=== PATIENT | female | born 1985 | race Caucasian/White ===

== ENCOUNTER 2023-03-02 11:10 | Outpatient (OUT) | payer OTHER, SELFPAY ==
[2023-03-02 11:54] LABS: Basophils Percent Auto 0.5 % (0.2-2.0); Eosinophils Absolute Auto 0.1 10^3/uL (0.0-0.7); Eosinophils Percent Auto 0.6 % (0.9-7.0); Hematocrit 33.9 % (36.0-48.0); Hemoglobin 10.8 g/dL (12.0-16.0); Immature Granulocytes Abs Auto 0.02 10^3/uL (0.00-0.03); Immature Granulocytes Pct Auto 0.3 % (0.0-0.5); Lymphocytes Absolute Auto 1.2 10^3/uL (1.2-3.8); Lymphocytes Percent Auto 15.4 % (20.5-60.0); Mean Corpuscular HGB Conc 31.9 g/dL (29.9-35.2); Mean Corpuscular Hemoglobin 27.8 pg (26.7-34.0); Mean Corpuscular Volume 87.1 fL (81.0-99.0); Mean Platelet Volume 9.8 fL (9.5-13.5); Monocytes Absolute Auto 0.5 10^3/uL (0.3-0.8); Neutrophils Percent Auto 77.2 % (43.0-75.0); Platelet Count 236 10^3/uL (150-450); Red Blood Count 3.89 10^6/uL (4.20-5.40); Red Cell Distribution Width 13.6 % (11.0-15.0); White Blood Count 7.7 10^3/uL (4.0-11.0)
[2023-03-02 12:17] LABS: Alanine Aminotransferase 36 U/L (14-59); Albumin Globulin Ratio 1.1; Albumin Level 4.1 g/dL (3.4-5.0); Alkaline Phosphatase 53 U/L (46-116); Anion Gap 13.6; Aspartate Amino Transferase 33 U/L (15-37); BUN Creatinine Ratio 18.3; Bilirubin Total 0.4 mg/dL (0.2-1.0); Calcium 9.2 mg/dL (8.5-10.1); Carbon Dioxide 26.6 mmol/L (21.0-32.0); Chloride 104 mmol/L (98-107); Chol HDL Ratio 2.6; Cholesterol 170 mg/dL (<=200); Estimated GFR (African America >60 (>=60); Estimated GFR (Non-African Ame >60 (>=60); Globulin 3.8 g/dL; Glucose 102 mg/dL (74-106); HDL Cholesterol 65 mg/dL (40-60); Potassium 4.2 mmol/L (3.5-5.1); Sodium 140 mmol/L (136-145); Total Protein 7.9 g/dL (6.4-8.2); Triglycerides 64 mg/dL (<=150); VLDL CHOLESTEROL 12.8 mg/dL
[2023-03-03 06:08] LABS: HCV Ab Non Reactive (Non Reactive); HIV Ab/p24 Ag Screen Non Reactive (Non Reactive)
== END 2023-03-02 11:11 | disposition home or self-care (01) ==
LOC: LAB 11:10
PROVIDERS: PCP Nurse Practitioner Primary Care; Visit Provider Nurse Practitioner Primary Care
DX: Z00.00 Encounter for general adult medical examination without abnormal findings (principal); Z11.59 Encounter for screening for other viral diseases; Z13.6 Encounter for screening for cardiovascular disorders; Z11.4 Encounter for screening for human immunodeficiency virus [HIV]; Z13.29 Encounter for screening for other suspected endocrine disorder
CPT/HCPCS: 36415; 80053; 80061; 84443; 85025; 86803; 87389

== ENCOUNTER 2023-03-03 07:25 | Outpatient (OUT) | payer OTHER, SELFPAY ==
--- NOTE | 2023-03-03 07:29 | MR_ITS ---
[address] [address] Patient Name: VERA PLEITEZ MRN: [id number] date: 1985 Sex: F Assigned Patient Location: MRI Current Patient Location: MRI Accession/Order Number: [id number] Exam Date: 03/03/2023 07:40 Report Date: 03/03/2023 08:44 At the request of: ROME COOPER Procedure: MR shoulder LT wo con EXAMINATION: MR shoulder LT wo con HISTORY: Left Shoulder Tendinitis M77.8 COMPARISON: No relevant comparison available. TECHNIQUE: A variety of imaging planes and parameters were utilized for visualization of suspected pathology. Imaging was performed without or with contrast as indicated by examination type. FINDINGS: ROTATOR CUFF REGION CUFF TENDONS: Slightly increased signal intensity in the supraspinatus tendon indicates tendon degeneration and/or tendinitis. No bethel tear is seen. CUFF MUSCLES: Normal appearing muscles. DELTOID: Normal. No significant atrophy or tear. LONG BICEPS TENDON: Normal. No abnormal signal, attrition, or tear. LABRUM/BICEPS ANCHOR SUPERIOR: Normal. No visible labral tear or biceps anchor pathology. ANTERIOR/INFERIOR: Normal. No visible tear or attrition. POSTERIOR: Normal. No posterior labrum abnormality. CAPSULE Normal. No visible capsular laxity or thickening. AC JOINT REGION AC JOINT: Normal acromioclavicular joint. AC LIGAMENTS: Normal acromioclavicular ligament. CC LIGAMENTS: Normal coracoclavicular ligaments. ACROMION: Lateral downsloping contacting the supraspinatus tendon. SUBACROMIAL BURSA: Normal. No significant effusion. HYALINE CARTILAGE: Normal. No visible cartilage narrowing or focal defect. OTHER BONES: Normal proximal humerus, glenoid, and coracoid. OTHER OBSERVATIONS: Negative. No other significant findings or glenohumeral effusion. MR/MR shoulder LT wo con IMPRESSION: 1. Mild strain/tendinopathy of the supraspinatus tendon. 2. Lateral downsloping acromion process with lateral margin small undersurface osteophyte contacting the supraspinatus tendon. Electronically authenticated by: JENNIFER BUSH Date: 03/03/2023 08:44
--- NOTE | 2023-03-03 07:29 | XR_ITS ---
The [address] [address] Patient Name: VERA PLEITEZ MRN: [id number] date: 1985 Sex: F Assigned Patient Location: MRI Current Patient Location: MRI Accession/Order Number: [id number] Exam Date: 03/03/2023 07:30 Report Date: 03/03/2023 07:50 At the request of: ROME COOPER Procedure: XR shoulder LT min 2V PROCEDURE: XR shoulder LT min 2V HISTORY: Left Shoulder Tendinitis M77.8 ; left posterior shoulder pain for 2 months, limited range of motion COMPARISON: None. FINDINGS: BONES:No fracture, acute abnormality, or significant arthropathy. SOFT TISSUES:No visible soft tissue swelling. EFFUSION:None visible. OTHER: Negative. XR/XR shoulder LT min 2V IMPRESSION: 1. No abnormal or suspicious findings. Electronically authenticated by: JENNIFER BSUH Date: 03/03/2023 07:50
== END 2023-03-03 07:26 | disposition home or self-care (01) ==
LOC: MRI 07:25
PROVIDERS: PCP Nurse Practitioner Primary Care; Visit Provider Nurse Practitioner Primary Care
DX: M77.8 Other enthesopathies, not elsewhere classified (principal)
CPT/HCPCS: 73030; 73221

== ENCOUNTER 2023-03-05 07:52 | Outpatient (RCR) | payer OTHER, SELFPAY | END 2023-05-30 15:51 | disposition home or self-care (01) | LOC: PT 07:52 | PROVIDERS: PCP Nurse Practitioner Primary Care; Visit Provider Nurse Practitioner Primary Care | DX: M77.8 Other enthesopathies, not elsewhere classified (principal); M25.512 Pain in left shoulder | CPT/HCPCS: 97110; 97112; 97161 ==

== ENCOUNTER 2024-01-07 20:07 | Outpatient (REF) | payer OTHER, SELFPAY ==
[2024-01-13 08:13] LABS: Age Gdln ACOG Testing Note (.); HPV Aptima Negative (Negative); IGP, Aptima HPV, rfx 16/18,45 Note (.)
== END 2024-01-07 20:08 | disposition home or self-care (01) ==
LOC: LAB 20:07
PROVIDERS: PCP Nurse Practitioner Primary Care; Visit Provider Physician Assistant
DX: Z01.419 Encounter for gynecological examination (general) (routine) without abnormal findings (principal)
CPT/HCPCS: 87624; G0145

== ENCOUNTER 2024-03-12 20:03 | Emergency (ER) | payer OTHER, SELFPAY ==
--- OUTSIDE RECORDS SUMMARY | 2024-03-12 20:20 | XMS_ITS | CCD ---
Author Organization [facility]iniSy[facility] Care Team Providers Care Waste Elimination Name Role Phone AKKIO POP Unavailable Unavailable MOOSA, THERESE F Unavailable Unavailable NISHI GUERRERO Unavailable Unavailable MOOSA, THERESE F Unavailable Unavailable AKIKO POP Unavailable Unavailable MOOSA, THERESE F Unavailable Unavailable NO FAMILY, PHYSICIAN Primary Care Provider Unava VANCE [place] Emergency Provider MISC, DR GILMORE Consulting Unavailable MISC, DR GILMORE Attending Unavailable MISC, DR GILMORE Admitting Unavailable MISC, DR GILMORE Consulting Unavailable MISC, DR GILMORE Attending Unavailable MISC, DR GILMORE Admitting Unavailable OLEXA, BRIDGER Admitting Unavailable OLEXA, BRIDGER Attending Unavailable ZIEBER, DR JENNIFER Gimenez Consulting Unavailable OLEXA, BRIDGER Consulting Unavailable MISC, DR GILMORE Primary Care Unavailable DES ARC, DR EARNESTINE Johnson Consulting Unavailable DACIA, DR KILLIAN Admitting Unavailable DACIA, DR KILLIAN Attending Unavailable DACIA, DR KILLIAN Consulting Unavailable DACIA, DR KILLIAN Admitting Unavailable DACIA, DR KILILAN Consulting Unavailable DACIA, DR KILLIAN Attending Unavailable Olexa, Bridger Unavailable Shannan Kee Unavailable David WALKER Attending Unavailable GRISELDA MARTEL Attending Unavailable Medications Current Medications Medication Drug Class(es) Dates Sig (Normalized) Sig (Original) etonogestrel 68 mg drug implant (1 source) Progestin Nexplanon 68 MG as directed Subcutaneous Active ondansetron 4 mg oral tablet (1 source) Serotonin-3 Receptor Antagonist Start: 08-05-2021 take 1 tablet by mouth every eight hours as needed Zofran ODT 4 MG 1 tablet on the tongue and allow to dissolve Orally every 8 hrs as needed for 4 days Jul, Active Problems Active Problems Problem Classification Problem Date Documented Da te Episodic/Chronic Administrative/social admission (4 sources) Encounter for examination for recruitment to armed [employer]; Translations: [ENC EXAM RECRUITMENT [employer]] Onset: 10-05-2021 Episodic Open wounds of head; neck; and trunk (1 source) Laceration - injury; Translations: [Laceration] Episodic Other female genital disorders (2 sources) Abnormal uterine and vaginal bleeding, unspecified; Translations: [Abnormal uterine and vaginal bleeding, unspecified] Onset: 06-03-2017 Chronic Urinary tract infections (4 sources) Urinary tract infection, site not specified; Translations: [UTI SITE NOT SPECIFIED] Onset: 10-17-2021 Episodic Past or Other Problems Problem Classification Problem Date Documented Da te Episodic/Chronic Immunizations and screening for infectious disease (2 sources) Encounter for screening for human papillomavirus (HPV); Translations: [Contact with and (suspected) exposure to other viral communicable diseases] Onset: 11-20-2020 Resolved: 08-05-2021 Episodic Intestinal infection (1 source) Viral intestinal infection, unspecified Onset: 08-05-2021 Resolved: 08-05-2021 Episodic Nausea and vomiting (1 source) Nausea with vomiting, unspecified Onset: 08-05-2021 Resolved: 08-05-2021 Episodic Nonmalignant breast conditions (4 sources) Unspecified lump in the left breast, lower outer quadrant; Translations: [UNS LUMP IN LT BREAST LW OUTR QUAD] Onset: 05-14-2021 Episodic Normal and/or delivery (2 sources) Encounter for test, result positive; Translations: [Encounter for test, result positive] Onset: 06-04-2017 Episodic Other bone disease and musculoskeletal deformities (1 source) Chondromalacia, right knee; Translations: [Chondromalacia, right knee M94.261] Onset: 06-20-2021 Resolved: 06-20-2021 Episodic Other non-traumatic joint disorders (5 sources) Pain in right knee; Translations: [PAIN IN RIGHT KNEE] Onset: 06-20-2021 Resolved: 06-20-2021 Episodic Other screening for suspected conditions (not mental disorders or infectious disease) (4 sources) Encounter for screening for malignant neoplasm of cervix; Translations: [ENC SCREENING MALIG NEOPLASM CERV] Onset: 11-13-2020 Episodic Results Test Name Value Interpretation Reference Range Facility [facility] 08-04-2022 Consent [id number]# 1.00CD:127 Normal [facility] Registrationon 08-04-2022 Registration [id number]# 1.00CD:127 Normal [facility] UA RANDOMon 10-17-2021 Bilirubin Ql (U) Negative Normal NEGATIVE [facility] Comment on above: Performed By: #### U A #### [facility] [address] [place] [address] Dr. Luis Enrique Espino Clarity (U) CLEAR Normal CLEAR [facility] Comment on above: Performed By: #### U A #### [facility] [address] [place] [address] Dr. Luis Enrique Espino Color (U) YELLOW Normal YELLOW [facility] Comment on above: Performed By: #### U A #### [facility] [address] [place] [address] Dr. Luis Enrique Espino Glucose Ql (U) Negative Normal NEGATIVE [facility] Comment on above: Performed By: #### U A #### [facility] [address] [place] [address] Dr. Luis Enrique Espino Hemoglobin Ql (U) Negative Normal NEGATIVE [facility] Comment on above: Performed By: #### U A #### [facility] [address] [place] [address] Dr. Luis Enrique Espino Ketones Ql (U) Negative Normal NEGATIVE [facility] Comment on above: Performed By: #### U A #### [facility] [address] [place] [address] Dr. Luis Enrique Espino LEUKOCYTES Negative Normal NEGATIVE [facility] Comment on above: Performed By: #### U A #### [facility] [address] [place] [address] Dr. Luis Enrique Espino Nitrite Ql (U) Negative Normal NEGATIVE [facility] Comment on above: Performed By: #### U A #### [facility] [address] [place] [address] Dr. Luis Enrique Espino pH (U) 7.5 [pH] Normal 5-9 [facility] Comment on above: Performed By: #### U A #### [facility] [address] [place] [address] Dr. Luis Enrique Espino SPEC GRAVITY 1.020 Normal 1.005-<=1.025 [facility] Comment on above: Performed By: #### U A #### [facility] [address] [place] [address] Dr. Luis Enrique Espino UA PROTEIN Negative Normal NEGATIVE/ TRACE [facility] Comment on above: Performed By: #### U A #### [facility] [address] [place] [address] Dr. Luis Enrique Espino Urobilinogen Qn (U) 1.0 {Aura'U}/dL Normal 0.2 - 1. 0 [facility] Comment on above: Performed By: #### U A #### [facility] [address] [place] [address] Dr. Luis Enrique Espino DRUG SCREEN RAPID (URINE)on 10-05-2021 AMP Negative Normal NEGATIVE [facility] Comment on above: Performed By: #### D RUGRPD #### [facility] [address] [place] [address] Dr. Luis Enrique Espino BAR Negative Normal NEGATIVE [facility] Comment on above: Performed By: #### D RUGRPD #### [facility] [address] [place] [address] Dr. Luis Enrique Espino BUP Negative Normal NEGATIVE [facility] Comment on above: Performed By: #### D RUGRPD #### [facility] [address] [place] [address] Dr. Luis Enrique Espino BZO Positive Abnormal NEGATIVE [facility] Comment on above: Performed By: #### D RUGRPD #### [facility] [address] [place] [address] Dr. Luis Enrique Espino MADONNA Negative Normal NEGATIVE [facility] Comment on above: Performed By: #### D RUGRPD #### [facility] [address] [place] [address] Dr. Luis Enrique Espino CUT-OFFS SEE BELOW Normal [facility] Comment on above: Result Comment: AMP (Amphetamine): 500ng/mL, BAR (Barbituates): 200 ng/mL, BZO (Benzodiazepines): 150 ng/mL, BUP (Buprenorphine): 10 ng/mL, MADONNA (Cocaine): 150 ng/mL, mAMP (Methamphetamine): 500 ng/mL, MTD (Methadone): 200 ng/mL, OPI (Opiates): 100 ng/mL, OXY (Oxycodone): 100 ng/mL, PCP (Phencyclidine): 25 ng/mL, PPX (Propoxyphene): 300 ng/mL, THC (Cannabinoids): 50 ng/mL, TCA (Trycyclic Antidepressants): 300 ng/mL Performed By: #### D RUGRPD #### [facility] [address] [place] [address] Dr. Luis Enrique Espino DRUG CUT HEADER DRUG CLASS TEST SYSTEM CUT-OFF CONCENTRATIONS ARE FOLLOWS: Normal [facility] Comment on above: Performed By: #### D RUGRPD #### [facility] [address] [place] [address] Dr. Luis Enrique Espino mAMP Negative Normal NEGATIVE [facility] Comment on above: Performed By: #### D RUGRPD #### [facility] [address] [place] [address] Dr. Luis Enrique Espino MTD Negative Normal NEGATIVE [facility] Comment on above: Performed By: #### D RUGRPD #### [facility] [address] [place] [address] Dr. Luis Enrique Espino OPI Negative Normal NEGATIVE [facility] Comment on above: Performed By: #### D RUGRPD #### [facility] [address] [place] [address] Dr. Luis Enrique Espino OXY Negative Normal NEGATIVE [facility] Comment on above: Performed By: #### D RUGRPD #### [facility] [address] [place] [address] Dr. Luis Enrique Espino PCP Negative Normal NEGATIVE [facility] Comment on above: Performed By: #### D RUGRPD #### [facility] [address] [place] [address] Dr. Luis Enrique Espino PPX Negative Normal NEGATIVE [facility] Comment on above: Performed By: #### D RUGRPD #### [facility] [address] [address] [address] Luis Enrique Espino TCA Negative Normal NEGATIVE [facility] Comment on above: Performed By: #### D RUGRPD #### [facility] [address] [place], [place] [address] Dr. Luis Enrique Espino THC Negative Normal NEGATIVE [facility] Comment on above: Performed By: #### D RUGRPD #### [facility] [address] [place], [place] [address] Dr. Luis Enrique Espino COVID Quick Testingon 2020 Result Negative L-3 [facility] Other Quick Fluon 08-05-2021 FLUAV Ab CF (S) [Titer] Negative L-3 [facility] Other FLUBV Ab CF (S) [Titer] Negative L-3 [facility] Other MG MAMM DIAGNOSTIC 3D DIPTI CA Don 05-14-2021 MG MAMM DIAGNOSTIC 3D DIPTI CAD Patient: VERA PLEITEZ Exam Date: 05/14/2021 : 1985 Gender:F Ordering : DR MARIA D PEDERSON . Admission #: [id number] Family : Order #: [id number] CLICK HERE TO VIEW EXAM RADIOLOGY REPORT PROCEDURE: MAMMOGRAM DIAGNOSTIC 3D BILATERAL CAD, 05/14/2021, 08:51 ULTRASOUND BREAST LEFT LIMITED, 05/14/2021, 09:16 COMPARISON: None. INDICATIONS: Lump in lower outer quadrant of left breast Calculator Name NCI Breast Cancer Risk Assessment Tool 5 Year Breast Cancer Risk 0.30% Lifetime Breast Cancer Risk 8.40% Personal Breast Cancer No Personal Ovarian Cancer No Treatments None Family Cancers Brother with lymphoma cancer at age 19. LOCATION: [facility] BREAST COMPOSITION: Heterogeneously dense,which may obscure small masses. FINDINGS: DIAGNOSTIC CATEGORY 2--BENIGN FINDING: The breasts are medium in size with dense fibroglandular tissue limiting diagnostic sensitivity. RIGHT BREAST: No significant suspicious finding. Benign calcification upper outer quadrant LEFT BREAST: No significant suspicious finding. [place] marker indicates a palpable mass lower outer quadrant. No mammographic abnormality on standard or spot images. No corresponding ultrasound abnormality. Further evaluation should be based on clinical exam. RECOMMENDATIONS: CLINICAL EVALUATION. PLEASE NOTE: A NORMAL MAMMOGRAM DOES NOT EXCLUDE THE POSSIBILITY OF BREAST CANCER. A CLINICALLY SUSPICIOUS PALPABLE LUMP SHOULD BE BIOPSIED. Dictated by: Earnestine Blanton MD on 05/14/2021 at 09:31 Approved by: Earnestine Blanton MD on 05/14/2021 at 09:33 Normal [facility] US BREAST LEFT LIMITEDon US BREAST LEFT LIMITED Patient: VERA PLEITEZ Exam Date: 05/14/2021 : 1985 Gender:F Ordering : DR MARIA D PEDERSON . Admission #: [id number] Family : Order #: [id number] CLICK HERE TO VIEW EXAM RADIOLOGY REPORT PROCEDURE: MAMMOGRAM DIAGNOSTIC 3D BILATERAL CAD, 05/14/2021, 08:51 ULTRASOUND BREAST LEFT LIMITED, 05/14/2021, 09:16 COMPARISON: None. INDICATIONS: Lump in lower outer quadrant of left breast Calculator Name NCI Breast Cancer Risk Assessment Tool 5 Year Breast Cancer Risk 0.30% Lifetime Breast Cancer Risk 8.40% Personal Breast Cancer No Personal Ovarian Cancer No Treatments None Family Cancers Brother with lymphoma cancer at age 19. LOCATION: [facility] BREAST COMPOSITION: Heterogeneously dense,which may obscure small masses. FINDINGS: DIAGNOSTIC CATEGORY 2--BENIGN FINDING: The breasts are medium in size with dense fibroglandular tissue limiting diagnostic sensitivity. RIGHT BREAST: No significant suspicious finding. Benign calcification upper outer quadrant LEFT BREAST: No significant suspicious finding. [place] marker indicates a palpable mass lower outer quadrant. No mammographic abnormality on standard or spot images. No corresponding ultrasound abnormality. Further evaluation should be based on clinical exam. RECOMMENDATIONS: CLINICAL EVALUATION. PLEASE NOTE: A NORMAL MAMMOGRAM DOES NOT EXCLUDE THE POSSIBILITY OF BREAST CANCER. A CLINICALLY SUSPICIOUS PALPABLE LUMP SHOULD BE BIOPSIED. Dictated by: Earnestine Blanton MD on 05/14/2021 at 09:31 Approved by: Earnestine Blanton MD on 05/14/2021 at 09:33 Normal [facility] PAP ACOG PANEL 2: 30 to 65on 2020 . . Normal [facility] Comment on above: Result Comment: Perf ormed at: WB Performed By: #### [id number] #### [facility] [address] [place] [address] Dolores Clarke Age Gdln ACOG Testing 30-65 Normal [facility] Comment on above: Performed By: #### [id number] #### [facility] [address] [place] [address] Dolores Clarke DIAGNOSIS: Comment Normal [facility] Comment on above: Result Comment: NEGA TIVE FOR INTRAEPITHELIAL LESION OR MALIGNANCY. Performed at: WB Performed By: #### [id number] #### [facility] [address] [place] [address] Dolores Clarke HPV Aptima Negative Normal Negative [facility] Comment on above: Result Comment: This nucleic acid amplification test detects fourteen high-risk HPV types (16,18,31,33,35,39,45,51,52,56,58,59,66,68) without differentiation. Performed at: =G Performed By: #### [id number] #### [facility] [address] [place] [address] Doloresdarryl Clarke Methodology: Comment Normal [facility] Comment on above: Result Comment: This liquid based ThinPrep(R) pap test was screened with the use of an image guided system. Performed at: WB Performed By: #### [id number] #### [facility] [address] [place] [address] Dolores Breweren Note: Comment Normal [facility] Comment on above: Result Comment: The Pap smear is a screening test designed to aid in the detection of premalignant and malignant conditions of the uterine cervix. It is not a diagnostic procedure and should not be used as the sole means of detecting cervical cancer. Both false-positive and false-negative reports do occur. . Performed at: WB Performed By: #### [id number] #### [facility] [address] [place] [address] Dolores Clarke Performed by: Comment Normal [facility] Comment on above: Result Comment: Renzo Gann, Analysis Analyst (ASCP) Performed at: WB Performed By: #### [id number] #### [facility] [address] [place] [address] Dolores Clarke Specimen adequacy: Comment Normal [facility] Comment on above: Result Comment: Sati sfactory for evaluation. Endocervical and/or squamous metaplastic cells (endocervical component) are present. Performed at: WB Performed By: #### [id number] #### [facility] [address] [place], [place] [address] Dolores Clarke HCG, Quanton 06-15-2017 HCG, Quant 9820 IU/L High <5 [facility] Comment on above: Result Comment: Non- preg premeno <=5Postmeno <=8Male <=3If HCG results do not concur with clinical observations, additional testing to confirm result is recommended. This test is not labeled for use as a tumor marker.[facility] [address] [place] [address] Performed By: #### B HCG ####[address] [place] [address] HCG, Quanton 06-04-2017 HCG, Quant 166 IU/L High <5 [facility] Comment on above: Result Comment: Non- preg premeno <=5Postmeno <=8Male <=3If HCG results do not concur with clinical observations, additional testing to confirm result is recommended. This test is not labeled for use as a tumor marker.Performed at [facility] [address] [place] [address] Performed By: #### B HCG ####[facility] [place] [address] CBC with Diffon 06-03-2017 Abs. Basophil 0.00 k/uL Normal 0.0-0.2 [facility] Comment on above: Performed By: #### C DP, PROL, BHCG, FT4, INSU, LH, PROG, TSH, GLU ####[address] [place] [address] Abs.Neutrophil (Seg) 3.40 k/uL Normal 1.8-7.7 [facility] Comment on above: Performed By: #### C DP, PROL, BHCG, FT4, INSU, LH, PROG, TSH, GLU ####[address] [address] Basophils/100 WBC Auto (Bld) 1 % Normal [facility] Comment on above: Performed By: #### C DP, PROL, BHCG, FT4, INSU, LH, PROG, TSH, GLU ####[place] [address] Eosinophils 0.10 10*3/uL Normal 0.0-0.4 [facility] Comment on above: Performed By: #### C DP, PROL, BHCG, FT4, INSU, LH, PROG, TSH, GLU ####[address] [address] Eosinophils/100 leukocytes 2 % Normal [facility] Comment on above: Performed By: #### C DP, PROL, BHCG, FT4, INSU, LH, PROG, TSH, GLU ####[place] [address] Erythrocyte distribution width Auto Ratio (RBC) 18.5 % High 12.5-15.4 [facility] Comment on above: Performed By: #### C DP, PROL, BHCG, FT4, INSU, LH, PROG, TSH, GLU ####[address] [address] Erythrocyte morphology ANISOCYTOSIS PRESENT Normal [facility] Comment on above: Result Comment: MICR OCYTOSIS PRESENT[address] [address] Performed By: #### C DP, PROL, BHCG, FT4, INSU, LH, PROG, TSH, GLU ####[address] [address] Erythrocytes (RBC) 4.05 10*6/uL Normal 4.0-5.2 [facility] Comment on above: Performed By: #### C DP, PROL, BHCG, FT4, INSU, LH, PROG, TSH, GLU ####[address] [address] Hematocrit (HCT) 29.6 % Low 36-46 [facility] Comment on above: Performed By: #### C DP, PROL, BHCG, FT4, INSU, LH, PROG, TSH, GLU ####[address] [address] Hemoglobin mass conc (Bld) 9.6 g/dL Low 12.0-16.0 [facility] Comment on above: Performed By: #### C DP, PROL, BHCG, FT4, INSU, LH, PROG, TSH, GLU ####[address] [address] Lymphocytes 1.40 10*3/uL Normal 1.0-4.8 [facility] Comment on above: Performed By: #### C DP, PROL, BHCG, FT4, INSU, LH, PROG, TSH, GLU ####[address] [address] Lymphocytes/100 leukocytes 27 % Normal [facility] Comment on above: Performed By: #### C DP, PROL, BHCG, FT4, INSU, LH, PROG, TSH, GLU ####[address] [address] MCH 23.7 pg Low 26-34 [facility] Comment on above: Performed By: #### C DP, PROL, BHCG, FT4, INSU, LH, PROG, TSH, GLU ####[address] [address] MCHC mass conc (RBC) 32.4 g/dL Normal 31-37 [facility] Comment on above: Performed By: #### C DP, PROL, BHCG, FT4, INSU, LH, PROG, TSH, GLU ####[place] [address] MCV 73.1 fL Low 80-100 [facility] Comment on above: Performed By: #### C DP, PROL, BHCG, FT4, INSU, LH, PROG, TSH, GLU ####[place] [address] Monocytes 0.30 10*3/uL Normal 0.1-1.2 [facility] Comment on above: Performed By: #### C DP, PROL, BHCG, FT4, INSU, LH, PROG, TSH, GLU ####[place] [address] Monocytes/100 leukocytes 6 % Normal [facility] Comment on above: Performed By: #### C DP, PROL, BHCG, FT4, INSU, LH, PROG, TSH, GLU ####[place] [address] Neutrophil (Seg) 64 % Normal [facility] Comment on above: Performed By: #### C DP, PROL, BHCG, FT4, INSU, LH, PROG, TSH, GLU ####[place] [address] Platelet mean volume (PMV) 7.8 fL Normal 6.0-12.0 [facility] Comment on above: Performed By: #### C DP, PROL, BHCG, FT4, INSU, LH, PROG, TSH, GLU ####[address] [address] Platelets 300 10*3/uL Normal 140-450 [facility] Comment on above: Performed By: #### C DP, PROL, BHCG, FT4, INSU, LH, PROG, TSH, GLU ####[address] [address] WBC (Leukocytes) 5.2 10*3/uL Normal 3.5-11.0 [facility] Comment on above: Performed By: #### C DP, PROL, BHCG, FT4, INSU, LH, PROG, TSH, GLU ####[address] [address] Auto Diff Performed NOT REPORTED Normal [facility] Comment on above: Performed By: #### C DP, PROL, BHCG, FT4, INSU, LH, PROG, TSH, GLU ####[address] [address] Platelets NOT REPORTED Normal [facility] Comment on above: Performed By: #### C DP, PROL, BHCG, FT4, INSU, LH, PROG, TSH, GLU ####[address] [address] WBC Morphology NOT REPORTED Normal [facility] Comment on above: Performed By: #### C DP, PROL, BHCG, FT4, INSU, LH, PROG, TSH, GLU ####[address] [address] Glucoseon 06-03-2017 Glucose mass conc 96 mg/dL Normal 70-99 [facility] Comment on above: Result Comment: [address] [address] Performed By: #### C DP, PROL, BHCG, FT4, INSU, LH, PROG, TSH, GLU ####[address] [address] HCG, Quanton 06-03-2017 HCG, Quant 65 IU/L High <5 [facility] Comment on above: Result Comment: Non- preg premeno <=5Postmeno <=8Male <=3If HCG results do not concur with clinical observations, additional testing to confirm result is recommended. This test is not labeled for use as a tumor marker.[address] [address] Performed By: #### C DP, PROL, BHCG, FT4, INSU, LH, PROG, TSH, GLU ####[address] [address] Insulinon 06-03-2017 Insulin 10.0 mU/L Normal [facility] Comment on above: Performed By: #### C DP, PROL, BHCG, FT4, INSU, LH, PROG, TSH, GLU ####[address] [address] Reference Range Normal [facility] Comment on above: Result Comment: Fast in.6-24.930 min: 20-78446 min: 29-8890 min: 26-88197 min: 22-[address] [address] Performed By: #### C DP, PROL, BHCG, FT4, INSU, LH, PROG, TSH, GLU ####[address] [address] Collection Info. FASTING Normal [facility] Comment on above: Performed By: #### C DP, PROL, BHCG, FT4, INSU, LH, PROG, TSH, GLU ####[address] [address] Luteinizing Hormoneon 2016 Luteinizing Hormone 0.6 U/L Low 1.0-95.6 [facility] Comment on above: Result Comment: Refe rence Range:Male: 1.7-8.6Ovulating Female: Follicular Phase 2.4-12.6 Ovulation Phase 14.0-95.6 Luteal Phase 1.0-11.4Postmenopausal Female: 7.7-58.[address] [address] Performed By: #### C DP, PROL, BHCG, FT4, INSU, LH, PROG, TSH, GLU ####[address] [address] Progesteroneon 06-03-2017 Progesterone 17.44 ng/mL Normal [facility] Comment on above: Result Comment: FEMA LE (healthy): Follicular phase 0.06-0.89 Ovulation phase 0.12-12.00 Luteal phase 1.83-23.90Postmenopausal <0.[address] [address] Performed By: #### C DP, PROL, BHCG, FT4, INSU, LH, PROG, TSH, GLU ####[address] [address] Prolactinon 06-03-2017 Prolactin 13.77 ug/L Normal 4.79-23.30 [facility] Comment on above: Result Comment: The presence of macroprolactin may cause interference in female patients with various endocrinological diseases or during .[address] [address] Performed By: #### C DP, PROL, BHCG, FT4, INSU, LH, PROG, TSH, GLU ####[address] [address] Thyroid Stim. Horm.on 2016 Thyroid stimulating hormone (TSH) 1.67 m[IU]/L Normal 0.30-5.00 [facility] Comment on above: Result Comment: [address] [address] Performed By: #### C DP, PROL, BHCG, FT4, INSU, LH, PROG, TSH, GLU ####[address] [id number] Thyroxine, Freeon 06-03-2017 Thyroxine, Free 1.21 ng/dL Normal 0.93-1.70 [facility] Comment on above: Result Comment: [address] [id number] [phone] Performed By: #### C DP, PROL, BHCG, FT4, INSU, LH, PROG, TSH, GLU ####[address] [id number] Vital Signs Date Time Vital Sign Value Performing Clinician Facility 08-05-2021 10:00-0500 Body height 167.64 cm Shannan Kee [facility] Other 08-05-2021 10:00-0500 Body temperature 96 [degF] Shannan Kee [facility] Other 08-05-2021 10:00-0500 Respiratory rate 18 /min Shannan Kee [facility] Other 08-05-2021 10:00-0500 SaO2% (BldA) [Mass fraction] 99 % Shannan Kee [facility] Other 07-20-2021 21:28-0500 Body height 167.64 cm PHYSICIAN NO [facility] 07-20-2021 21:28-0500 Body mass index (BMI) [Ratio] 23.3 kg/m2 PHYSICIAN NO [facility] 07-20-2021 21:28-0500 Body temperature 98.1 [degF] PHYSICIAN NO [facility] 07-20-2021 21:28-0500 Body weight 65.77 kg PHYSICIAN NO [facility] 07-20-2021 21:28-0500 Diastolic blood pressure 65 mm[Hg] PHYSICIAN NO [facility] 07-20-2021 21:28-0500 Heart rate 84 /min PHYSICIAN NO [facility] 07-20-2021 21:28-0500 Respiratory rate 18 /min PHYSICIAN NO [facility] 07-20-2021 21:28-0500 SaO2% (BldA) [Mass fraction] 100 % PHYSICIAN NO [facility] 07-20-2021 21:28-0500 Systolic blood pressure 145 mm[Hg] PHYSICIAN NO [facility] 06-20-2021 15:00-0400 Body height 167.64 cm Bridger Stephens Other [facility] Other 06-20-2021 15:00-0400 Body mass index (BMI) [Ratio] 23.08 kg/m2 Bridger Stephens Other [facility] Other 06-20-2021 15:00-0400 Body weight 64.86 kg Bridger Stephens Other [facility] Other Encounters Encounter Date Encounter Type Care Provider Facility Start: 01-07-2024 End: 01-07-2024 ambulatory GRISELDA MARTEL Not Available Start: 08-04-2022 End: 08-05-2022 ambulatory David WALKER Facility:[facility] Start: 10-17-2021 End: 10-18-[address] DOCTOR LINTON Facility:[facility] Start: 10-05-2021 End: 10-06-[address] DOCTOR LINTON Facility:[facility] Start: 08-05-2021 End: 08-05-2021 ambulatory Shannan Kee [facility] Other Start: 08-05-2021 Office outpatient visit 15 minutes Shannan Kee [facility] Start: 07-20-2021 End: 07-20-2021 Emergency department patient visit PHYSICIAN NO [facility] Start: 06-20-2021 End: 06-21-2021 ambulatory BRIDGER STEPHENS Facility: Start: 06-20-2021 Office outpatient ne w 30 minutes Bridger Olexa [facility] Start: 05-14-2021 End: 05-15-[address] DOCTOR LINTON Facility:[facility] Start: 11-13-2020 End: 11-13-[address] MARIA D PEDERSON Facility:[facility] Start: 06-15-2017 End: 06-16-2017 Ambulatory NISHI GUERRERO [facility] Start: 06-04-2017 End: 06-05-2017 Ambulatory AKIKO Corey [facility] Start: 06-03-2017 End: 06-04-2017 Ambulatory AKIKO Corey [facility] Procedures Date Procedure Procedure Detail Performing Clinician Start: 06-15-2017 HCG, QUANTITATIVE, AKIKO KIESHA Start: 06-04-2017 HCG, QUANTITATIVE, AKIKO KIESHA Start: 06-03-2017 CBC WITH AUTO DIFFERENTIAL AKIKO POP Start: 06-03-2017 GLUCOSE, RANDOM AKIKO POP Start: 06-03-2017 HCG, QUANTITATIVE, AKIKO PPO Start: 06-03-2017 INSULIN, TOTAL AKIKO R USSELL Start: 06-03-2017 LUTEINIZING HORMONE LAK EYA KIESHA Start: 06-03-2017 PROGESTERONE AKIKO CAMPBELL SELL Start: 06-03-2017 PROLACTIN AKIKO RUS SELL Start: 06-03-2017 T4, FREE AKIKO ADRIAN SELL Start: 06-03-2017 TSH WITHOUT REFLEX TOBI SHEIKH KIESHA Plan of Treatment Date Care Activity Detail Author Patient Education Care For Your Stitches (ED) Laceration (ED) [facility] Patient referral [facility] Payers Date Payer Category Payer [employer] ( and others) [id number] 2014 Unknown [id number] 1985 Unknown [id number] 1983 Unknown [id number] 1983 Unknown [id number] 1983 Unknown [id number] 1983 Unknown [id number] 1983 Unknown [id number] 1959 Unknown [id number] Self-pay Self Pay [id number] Unknown Self Pay [id number] Social History Date Type Detail Facility Start: 07-20-2021 Tobacco smoking status NHIS Never smoked tobacco (finding) [facility] Other Start: 1985 Sex Assigned At Female F [facility] Sex Assigned At Sex Assigned At [facility] Other Evaluation note 08-05-2021 Note Date & Type Note Facility 08-05-2021 Evaluation note Encounter Date Diagnosis Assessment Notes Jul, Contact with and (suspected) exposure to other viral communicable diseases (ICD-10 - Z20.828) Today test was performed in office. Results are currently negative. That does not mean that you will not develop COVID or do not currently have a low viral count of COVID. The rapid test works best if symptoms have been over 72 hours and the results can vary if you are asymptomatic There is a higher chance of false negative results to occur if testing is performed too soon. It is recommended that even if results are negative and you have been exposed to someone that has COVID that you follow current CDC recommendation s. These can be found at CDC.GOV. Follow up with primary care provider if symptoms persist or do not improve *ELIZABETH GIVEN ON OTC TREATMENTS, FOLLOW UP AND WHEN TO SEEK EMERGENCY TREATMENT Jul, Nausea and vomiting, unspecified vomiting type (ICD-10 - R11.2) Jul, Viral gastroenteritis (ICD-10 - A08.4) Symptoms appear viral in nature. Take medication for nausea as needed. Important to watch for signs and symptoms of dehydration including decrease in urine output, dry mucus membranes. If any of these symptoms occur or pain develops, seek emergency treatment. Jul, Other Additional time spent conducting pre-visit phone call, screening for symptoms, instructions on social distancing, application and removal of PPE, and cleaning of examination room, equipment and supplies was preformed. Patient education given for testing methodology and results. Patient care instructions given in writting by [facility] document. [facility] Other Clinical Note 06-20-2021 Note Date & Type Note Facility 06-20-2021 Note PROCEDURE: XR KNEE R T 1_2 V HISTORY: Pain of knee region ; lateral knee pain COMPARISON: None. FINDINGS: BONES:No fracture, acute abnormality, or significant arthropathy. SOFT TISSUES:No visible soft tissue swelling. EFFUSION:None visible. OTHER: Negative. IMPRESSION: 1. No acute or suspicious findings to account for patient's symptoms. Electronically authenticated by: JENNIFER BUSH Date: 2021-06-20 21:34 [facility] Evaluation note 06-20-2021 Note Date & Type Note Facility 06-20-2021 Evaluation note Encounter Date Diagnosis Assessment Notes May, Acute pain of right knee (ICD-10 - M25.561) May, Chondroma lacia, right knee (ICD-10 - M94.261) The patient appears to be suffering from patellar chondrosis (patellofemoral chondromalacia) versus iliotibial band syndrome involving the knee. We discussed the conservative treatment options which can be beneficial in relieving pain including gentle non-impact motion and quadriceps strengthening exercise as well as occasional use of non-steroidal anti-inflammatory medication. We discussed that this may be a group home problem. Advised patient limit her activity while knee is flared, and may then slowly progress back into her regular sporting activity. If continues to have issues/pain recurrance, may consider MRI for evaluation for meniscal tear. [facility] Other Evaluation note Note Date & Type Note Facility Evaluation note No assessment information avail[facility] History general Narrative - Reported Note Date & Type Note Facility History general Narrative - Reported Type Surgical History C section Hospitalization History see above [facility] Other Hospital Discharge instructions Note Date & Type Note Facility Hospital Discharge instructions Additional Instructions KEEP AREA CLEAN AND DRY. KEEP DRESSING ON FOR 24 HRS. RETURN TO ED FOR SIGNS OF INFECTION: SWELLING, DEVELOP REDNESS OR DISCHARGE, WARMTH TO AREA, FEVER, STREAKING SPREADING FROM THE WOUND RETURN TO ED TO REMOVE SUTURES IN 10 DAYS. DO NOT USE NEOSPORIN THIS CAN CAUSE ALLERGIC REACTION THAT CAN LOOK LIKE AN INFECTION. USE BACITRACIN INSTEAD. CHANGE DRESSING TWO TO THREE TIMES A DAY IF USING A DRESSING Do not submerge laceration water Keep moist with Aquaphor Vaseline Follow with your family doctor [facility] Summary Purpose Family History No Family History Records FoundNo Family History Records FoundNo Family History Records FoundNo Family History Records FoundNo Family History Records Found Advance Directives No Advanced Directives Records Found Advance Directive Response Recorded Date/ Time Advance Directives No June 9:23pm Chief Complaint and Reason for Visit Chief Complaint left knee lac-laft h and lac-fell on glass Additional Source Comments INFORMATION SOURCE (unrecogn ized section and content) DATE CREATED AUTHOR 02/16/2018 [facility] DATE CREATED AUTHOR AUTHOR'S ORGANIZ ATION 02/16/2018 [facility] DATE CREATED AUTHOR AUTHOR'S ORGANIZ ATION 10/19/2021 [facility] DATE CREATED AUTHOR AUTHOR'S ORGANIZ ATION 08/05/2022 [facility] DATE CREATED AUTHOR AUTHOR'S ORGANIZ ATION 01/09/2024 [facility] EPIC Goals (unrecognized section and content) Goals may be documented in a n alternate sectionNo InformationNo Information REASON FOR VISIT (unrecogniz ed section and content) Right Knee Pain#1 BLACK ACAD IA, NAUSEA, VOMITTING, COVID Provider Visit FOR RECORDS PERTAINING TO PATIENTS WHO ARE OR HAVE BEEN ENROLLED IN A CHEMICAL DEPENDENCY/SUBSTANCEABUSE PROGRAM, SOME INFORMATION MAY BE OMITTED. This clinical summary was aggregated from multiple sources. Caution should be exercised in using it in the provision of clinical care. This summary normalizes information from multiple sources, and as a consequence, information in this document may materially change the coding, format and clinical context of patient data. In addition, data may be omitted in some cases. CLINICAL DECISIONS SHOULD BE BASED ON THE PRIMARY CLINICAL RECORDS. [employer] provides no warranty or guarantee of the accuracy or completeness of information in this document.
[2024-03-12 20:59] VITALS: BP 108/75; PULSE 74; TEMP 37; O2SAT 99; BMI 25.2
--- NOTE | 2024-03-12 22:39 | XR_ITS ---
[facility] [place] [id number] Patient Name: VERA PLEITEZ MRN: [id number] date: 1985 Sex: F Assigned Patient Location: ER Current Patient Location: Accession/Order Number: [id number] Exam Date: 03/12/2024 22:48 Report Date: 03/13/2024 01:31 At the request of: FANI ADAMES Procedure: XR foot LT min 3V EXAM: XR foot LT min 3V HISTORY: Atraumatic pain, second metatarsal area COMPARISON: None. FINDINGS: 3 views are submitted. The distal tibia, fibula, talus, calcaneus, midfoot, metatarsals, phalanges are all intact with normal alignment. Old healed left fifth metatarsal fracture. Bone mineralization is normal. No soft tissue swelling. XR/XR foot LT min 3V IMPRESSION: 1. No acute osseous injury with normal alignment. 2. Chronic deformity associated with old healed left fifth metatarsal fracture. Electronically authenticated by: ALTHEA RIVERO Date: 03/13/2024 01:31
--- NOTE | 2024-03-12 22:40 | ED.EXTPRO1 ---
HPI - Extremity Problem General Chief complaint: Extremity Problem, Nontraumatic Stated complaint: LOWER LEFT EXTREMITY PAIN Time Seen by Provider: 03/12/24 22:38 Source: patient Mode of arrival: walk-in Limitations: no limitations History of Present Illness HPI Narrative: 38-year-old female presents for left foot pain. She was walking today and it developed pain. There is no injury such as tripping or falling or twisting. She points to the second metatarsal area of the left foot indicated. Pain. No pain in the ankle and the pain is mild to moderate. Related Data Previous Rx's ?Medication ?Instructions ?Recorded ibuprofen 800 mg tablet 800 mg PO Q8H PRN pain #20 tabs 03/12/24 Allergies Allergy/AdvReac Type Severity Reaction Status Date / Time No Known Drug Allergies Allergy Verified 03/12/24 21:04 Review of Systems ROS Narrative A ten point review of systems is negative except as noted above. Exam Narrative Exam Narrative: Nurses note and vital signs reviewed and patient is not hypoxic. General: The patient appears well and in no apparent distress. Patient is resting comfortably on cart. Skin: Warm, dry, no pallor noted. There is no rash noted. Head: Normocephalic, atraumatic Eye: Normal conjunctiva, no drainage Ears, Nose, Mouth, and Throat: oral mucosa is moist. Nares patent. Cardiovascular: Regular Rate and Rhythm Respiratory: Patient is in no distress, no accessory muscle use GI: Soft and nontender Musculoskeletal: There is no bruising or swelling or rash on the left foot. She has tenderness over the second metatarsal region. The ankle is nontender Neurological: Awake and alert Psychiatric: Cooperative Constitutional Vital Signs, click to edit/add: Last Vital Signs Temp 98.6 F 03/12/24 20:59 Pulse 74 03/12/24 20:59 Resp 16 03/12/24 20:59 BP 108/75 03/12/24 20:59 Pulse Ox 99 03/12/24 20:59 O2 Del Method Room Air 03/12/24 20:59 Course Vital Signs Vital signs: Vital Signs Temperature 98.6 F 03/12/24 20:59 Pulse Rate 74 03/12/24 20:59 Respiratory Rate 16 03/12/24 20:59 Blood Pressure 108/75 03/12/24 20:59 Pulse Oximetry 99 03/12/24 20:59 Oxygen Delivery Method Room Air 03/12/24 20:59 Temperature 98.6 F 03/12/24 20:59 Pulse Rate 74 03/12/24 20:59 Respiratory Rate 16 03/12/24 20:59 Blood Pressure 108/75 03/12/24 20:59 Pulse Oximetry 99 03/12/24 20:59 Oxygen Delivery Method Room Air 03/12/24 20:59 MDM - Extremity (Nontraumatic) MDM Narrative Medical decision making narrative: X-ray of the foot on my interpretation shows no acute findings. My clinical impression is that she has tendinitis. Postop shoe applied and application checked by me and found to be appropriate, she is neurovascularly intact and she is referred to podiatry. Treatment diagnosis and follow-up were discussed with the patient. Differential Diagnosis Differential diagnosis: Likely other (Foot strain, tendinitis, fracture) Imaging Data Foot x-ray: My impression: No acute findings. Remote fifth metatarsal fracture present. Discharge Plan Discharge Stand Alone Forms: Portal Instructions Chief Complaint: Extremity Problem, Nontraumatic Clinical Impression: Tendinitis Patient Disposition: Home, Self-Care Time of Disposition Decision: 23:42 Condition: Good Mode of Transportation: Private Vehicle Prescriptions / Home Meds: New ibuprofen 800 mg tablet 800 mg PO Q8H PRN (Reason: pain) Qty: 20 0RF Print Language: [place] Instructions: Tendinitis (ED) Referrals: Henry Mancilla NP [Primary Care Provider] - 1 week Gilberto Almonte DPM [Physician] - 1 week
== END 2024-03-12 23:54 | disposition home or self-care (01) ==
PROVIDERS: Emergency Provider Emergency Medicine; PCP Nurse Practitioner Primary Care
DX: M77.8 Other enthesopathies, not elsewhere classified (principal)
CPT/HCPCS: 73630; 99283

== ENCOUNTER 2024-04-01 09:19 | Outpatient (OUT) | payer OTHER, SELFPAY ==
--- NOTE | 2024-04-01 | XR_ITS ---
[address] [address] Patient Name: VERA PLEITEZ MRN: [id number] date: 1985 Sex: F Assigned Patient Location: Current Patient Location: Accession/Order Number: [id number] Exam Date: 04/01/2024 11:50 Report Date: 04/04/2024 14:30 At the request of: LUIS DIETZ Procedure: XR foot LT min 3V PROCEDURE: XR foot LT min 3V COMPARISON: 03/12/2024 HISTORY: LEFT FOOT PAIN FINDINGS: BONES:No acute fracture or dislocation. Remote healed fracture fifth metatarsal with 5 mm of offset SOFT TISSUES:Negative. No visible soft tissue swelling. EFFUSION:None visible. OTHER: Negative. XR/XR foot LT min 3V IMPRESSION: No acute radiographic abnormality Electronically authenticated by: EARNESTINE MACDONALD Date: 04/04/2024 14:30
--- OUTSIDE RECORDS SUMMARY | 2024-04-01 09:33 | XMS_ITS | CCD ---
Author Organization [facility] Care Team Providers Care Invoice Coder Name Role Phone AKIKO POP Unavailable Unavailable MOOSA, THERESE F Unavailable Unavailable FINTENISHI Farooq S Unavailable Unavailable MOOSA, THERESE F Unavailable Unavailable AKIKO POP Unavailable Unavailable MOOSA, THERESE F Unavailable Unavailable NO FAMILY, PHYSICIAN Primary Care Provider VANCE Grijalva Emergency Provider MISC, DR GILMORE Consulting Unavailable MISC, DR GILMORE Attending Unavailable MISC, DR GILMORE Admitting Unavailable MISC, DR GILMORE Consulting Unavailable MISC, DR GILMORE Attending Unavailable MISC, DR GILMORE Admitting Unavailable OLEXA, BRIDGER Admitting Unavailable OLEXA, BRIDGER Attending Unavailable ZIEBER, DR JENNIFER Gimenez Consulting Unavailable OLEXA, BRIDGER Consulting Unavailable MISC, DR GILMORE Primary Care Unavailable MARYVILLE, DR EARNESTINE Johnson Consulting Unavailable DACIA, DR KILLIAN Admitting Unavailable DACIA, DR KILLIAN Attending Unavailable DACIA, DR KILLIAN Consulting Unavailable DACIA, DR KILLIAN Admitting Unavailable DACIA, DR KILLIAN Consulting Unavailable DACIA, DR KILLIAN Attending Unavailable Olexa, Bridger Unavailable Shannan Kee Unavailable GRISELDA MARTEL Attending Unavailable STAS Echols Attending Provider NO FAMILY, PHYSICIAN Primary Care Unavailable Jessica Echols Attending Unavailable Jessica Echols Admitting Unavailable Hailee Guillaume Attending Unavailable Medications Current Medications Medication Drug Class(es) Dates Sig (Normalized) Sig (Original) azithromycin 1000 mg oral tablet (1 source) Macrolide Antimicrobial Start: 03-15-2024 take 1000 mg by mouth once daily Azithromycin Active 1000 MG PO Daily 2 March 15, 2024 12:00am doxycycline hyclate 100 mg oral capsule (1 source) Tetracycline-class Drug Start: 03-15-2024 take 100 mg by mouth twice daily Doxycycline Hyclate Active 100 MG PO Twice daily 14 March 15, 2024 12:00am etonogestrel 68 mg drug implant (1 source) Progestin Nexplanon 68 MG as directed Subcutaneous Active ibuprofen 800 mg oral tablet (2 sources) Nonsteroidal Anti-inflammatory Drug Start: 03-15-2024 take 800 mg by mouth every twelve hours Ibuprofen Active 800 MG PO Every 12 hours March 15, 2024 12:00am metroNIDAZOLE 500 mg oral tablet (1 source) Nitroimidazole Antimicrobial Start: 03-15-2024 take 500 mg by mouth twice daily Metronidazole Active 500 MG PO Twice daily 14 March 15, 2024 12:00am ondansetron 4 mg oral tablet (1 source) Serotonin-3 Receptor Antagonist Start: 08-05-2021 take 1 tablet by mouth every eight hours as needed Zofran ODT 4 MG 1 tablet on the tongue and allow to dissolve Orally every 8 hrs as needed for 4 days Jul, Active valACYclovir 1000 mg oral tablet (1 source) Herpesvirus Nucleoside Analog DNA Polymerase Inhibitor, Herpes Simplex Virus Nucleoside Analog DNA Polymerase Inhibitor, Herpes Zoster Virus Nucleoside Analog DNA Polymerase Inhibitor Start: 03-15-2024 take 1000 mg by mouth twice daily Valacyclovir Active 1000 MG PO Twice daily 20 March 15, 2024 12:00am Problems Active Problems Problem Classification Problem Date Documented Date Episodic/Chronic Administrative/social admission (4 sources) Encounter for examination for recruitment to [employer]; Translations: [ENC EXAM RECRUITMENT [employer]] Onset: 10-05-2021 Episodic Immunizations and screening for infectious disease (4 sources) Encounter for screening for human papillomavirus (HPV); Translations: [Contact with and (suspected) exposure to other viral communicable diseases] Onset: 11-20-2020 Resolved: 08-05-2021 Episodic Open wounds of head; neck; and trunk (3 sources) Laceration - injury; Translations: [Laceration] 08-05-2023 Episodic Other female genital disorders (2 sources) Abnormal uterine and vaginal bleeding, unspecified; Translations: [Abnormal uterine and vaginal bleeding, unspecified] Onset: 06-03-2017 Chronic Other female genital disorders (1 source) Other specified noninflammatory disorders of vagina; Translations: [Other specified noninflammatory disorders of vagina] Onset: 03-16-2024 Episodic Urinary tract infections (4 sources) Urinary tract infection, site not specified; Translations: [UTI SITE NOT SPECIFIED] Onset: 10-17-2021 Episodic Past or Other Problems Problem Classification Problem Date Documented Da te Episodic/Chronic Intestinal infection (1 source) Viral intestinal infection, [...] Test Name Value Interpretation Reference Range Facility HSV Culture and Typingon HSV Culture and Typing Comment Normal . [facility] Comment on above: Result Comment: Nega tive No Herpes simplex virus isolated. Performed at: - [facility] [address] [id number] Ergonomist: Golden Hernandez PhD, Phone: [phone] PERFORMED BY: [address] [place] [address] PATHOLOGIST SPINDLE SETTER MENDEZ COOL M.D. Performed By: #### V AGINITIS+, HSV CULTwTYPING, HERPES 1,2 #### [facility] , Herpes Simplex 1 and 2, NAAo n 03-16-2024 HSV 1 TENA Positive Critically abnormal Negative [facility] Comment on above: Result Comment: This test was developed and its performance characteristics determined by [facility]. It has not been cleared or approved by the Food and Drug Administration. Performed By: #### V AGINITIS+, HSV CULTwTYPING, HERPES 1,2 #### [facility] , HSV 2 TENA Negative Normal Negative [facility] Comment on above: Result Comment: This test was developed and its performance characteristics determined by [facility]. It has not been cleared or approved by the Food and Drug Administration. Performed at: [address] [id number] Ergonomist: Polina Aaron MD, Phone: [phone] Performed By: #### V AGINITIS+, HSV CULTwTYPING, HERPES 1,2 #### [facility] , Vaginitis Plus (VG+)on 03-16 Atopobium Vaginae High - 2 Critically abnormal . [facility] Comment on above: Result Comment: This test was developed and its performance characteristics determined by [facility]. It has not been cleared or approved by the Food and Drug Administration. Performed By: #### V AGINITIS+, HSV CULTwTYPING, HERPES 1,2 #### [facility] , BVAB2 Moderate - 1 Normal . [facility] Comment on above: Result Comment: This test was developed and its performance characteristics determined by [facility]. It has not been cleared or approved by the Food and Drug Administration. Performed By: #### V AGINITIS+, HSV CULTwTYPING, HERPES 1,2 #### [facility] , Rox Albicans, TENA Negative Normal Negative [facility] Comment on above: Result Comment: This test was developed and its performance characteristics determined by [facility]. It has not been cleared or approved by the Food and Drug Administration. Performed By: #### V AGINITIS+, HSV CULTwTYPING, HERPES 1,2 #### [facility] , Rox Glabrata, TENA Negative Normal Negative [facility] Comment on above: Result Comment: This test was developed and its performance characteristics determined by [facility]. It has not been cleared or approved by the Food and Drug Administration. Performed By: #### V AGINITIS+, HSV CULTwTYPING, HERPES 1,2 #### [facility] , Chlamydia Trachomotis, TENA Negative Normal Negative [facility] Comment on above: Performed By: #### V AGINITIS+, HSV CULTwTYPING, HERPES 1,2 #### [facility] , Megasphaera Low - 0 Normal . [facility] Comment on above: Result Comment: This test was developed and its performance characteristics determined by [facility]. It has not been cleared or approved by the Food and Drug Administration. Calculate total score by adding the 3 individual bacterial vaginosis (BV) marker scores together. Total score is interpreted as follows: Total score 0-1: Indicates the absence of BV. Total score 2: Indeterminate for BV. Additional clinical data should be evaluated to establish a diagnosis. Total score 3-6: Indicates the presence of BV. Performed By: #### V AGINITIS+, HSV CULTwTYPING, HERPES 1,2 #### [facility] , Neisseria Gonorrhoeae, TENA Negative Normal Negative [facility] Comment on above: Result Comment: Perf ormed at: - [facility] [address] [id number] Ergonomist: Polina Aaron MD, Phone: [phone] Performed By: #### V AGINITIS+, HSV CULTwTYPING, HERPES 1,2 #### [facility] , Tric Vag TENA Negative Normal Negative [facility] Comment on above: Performed By: #### V AGINITIS+, HSV CULTwTYPING, HERPES 1,2 #### [facility] , UA RANDOMon 10-17-2021 Bilirubin Ql (U) Negative Normal NEGATIVE [facility] Comment on above: Performed By: #### U A #### [facility] [address] [place] [address] Dr. Luis Enrique Espino Clarity (U) CLEAR Normal CLEAR [facility] Comment on above: Performed By: #### U A #### [facility] [address] [place] [address] Dr. Luis Enrique Espino Color (U) YELLOW Normal YELLOW [facility] Comment on above: Performed By: #### U A #### [facility] [address] [place] [address] Dr. Luis Enrique Espino Glucose Ql (U) Negative Normal NEGATIVE [facility] Comment on above: Performed By: #### U A #### [facility] [address] [address] [address] Luis Enrique Espino Hemoglobin Ql (U) Negative Normal NEGATIVE [facility] Comment on above: Performed By: #### U A #### [facility] [address] [place] [address] Dr. Luis Enrique Espino Ketones Ql (U) Negative Normal NEGATIVE [facility] Comment on above: Performed By: #### U A #### [facility] [address] [place] [address] Dr. Luis Enrique Espino LEUKOCYTES Negative Normal NEGATIVE [facility] Comment on above: Performed By: #### U A #### [facility] [address] [place] [address] Dr. Luis Enrique Espino Nitrite Ql (U) Negative Normal NEGATIVE [facility] Comment on above: Performed By: #### U A #### [facility] [address] [place] [address] Dr. Luis Enrique Espino pH (U) 7.5 [pH] Normal 5-9 [facility] Comment on above: Performed By: #### U A #### [facility] [address] [address] [address] Luis Enrique Espino SPEC GRAVITY 1.020 Normal 1.005-<=1.025 [facility] Comment on above: Performed By: #### U A #### [facility] [address] [place] [address] Dr. Luis Enrique Espino UA PROTEIN Negative Normal NEGATIVE/ TRACE [facility] Comment on above: Performed By: #### U A #### [facility] [address] [place] [address] Dr. Luis Enrique Espino Urobilinogen Qn (U) 1.0 {Aura'U}/dL Normal 0.2 - 1.0 [facility] Comment on above: Performed By: #### U A #### [facility] [address] [place] [address] Dr. Luis Enrique Espino DRUG SCREEN RAPID (URINE)on 10-05-2021 AMP Negative Normal NEGATIVE [facility] Comment on above: Performed By: #### D RUGRPD #### [facility] [address] [place] [address] Dr. Luis Enrique Espino BAR Negative Normal NEGATIVE [facility] Comment on above: Performed By: #### D RUGRPD #### [facility] [address] [place] [address] Dr. Luis Enrique Espino BUP Negative Normal NEGATIVE [facility] Comment on above: Performed By: #### D RUGRPD #### [facility] [address] [place] [address] Dr. Luis Enrique Espino BZO Positive Abnormal NEGATIVE [facility] Comment on above: Performed By: #### D RUGRPD #### [facility] [address] [place] [address] Dr. Luis Enrique Espino MADONNA Negative Normal NEGATIVE [facility] Comment on above: Performed By: #### D RUGRPD #### [facility] [address] [place] [address] Dr. Luis Enrique Espino CUT-OFFS SEE BELOW Normal [facility] Comment on above: Result Comment: AMP [...] ng/mL Performed By: #### D RUGRPD #### [facility] [address] [place] [address] Dr. Luis Enrique Espino DRUG CUT HEADER DRUG CLASS TEST SYSTEM CUT-OFF CONCENTRATIONS ARE FOLLOWS: Normal [facility] Comment on above: Performed By: #### D RUGRPD #### [facility] [address] [place] [address] Dr. Luis Enrique Espino mAMP Negative Normal NEGATIVE [facility] Comment on above: Performed By: #### D RUGRPD #### [facility] [address] [place] [address] Dr. Luis Enrique Espino MTD Negative Normal NEGATIVE [facility] Comment on above: Performed By: #### D RUGRPD #### [facility] [address] [place] [address] Dr. Luis Enrique Espino OPI Negative Normal NEGATIVE [facility] Comment on above: Performed By: #### D RUGRPD #### [facility] [address] [place] [address] Dr. Luis Enrique Espino OXY Negative Normal NEGATIVE [facility] Comment on above: Performed By: #### D RUGRPD #### [facility] [address] [place] [address] Dr. Luis Enrique Espino PCP Negative Normal NEGATIVE [facility] Comment on above: Performed By: #### D RUGRPD #### [facility] [address] [place] [address] Dr. Luis Enrique Espino PPX Negative Normal NEGATIVE [facility] Comment on above: Performed By: #### D RUGRPD #### [facility] [address] [place] [address] Dr. Luis Enrique Espino TCA Negative Normal NEGATIVE [facility] Comment on above: Performed By: #### D RUGRPD #### [facility] [address] [place] [address] Dr. Luis Enrique Espino THC Negative Normal NEGATIVE [facility] Comment on above: Performed By: #### D RUGRPD #### [facility] [address] [place], [place] [address] Dr. Luis Enrique ZHOU Quick Testingon 2020 Result Negative [employer] Other Quick Fluon 08-05-2021 FLUAV Ab CF (S) [Titer] Negative [employer] Other FLUBV Ab CF (S) [Titer] Negative [employer] Other MG MAMM DIAGNOSTIC 3D DIPTI CA Don 05-14-2021 MG MAMM DIAGNOSTIC 3D DIPTI CAD Patient: VERA PLEITEZ Exam Date: 05/14/2021 : 1985 Gender:F Ordering : DR MARIA D PEDERSON . Admission #: [id number] Family : Order #: [id number] CLICK HERE TO VIEW EXAM RADIOLOGY REPORT [...] lymphoma cancer at age 17. LOCATION: [facility] BREAST COMPOSITION: Heterogeneously dense,which may obscure small masses. FINDINGS: DIAGNOSTIC CATEGORY 2--BENIGN FINDING: The breasts are medium in size with dense fibroglandular tissue limiting diagnostic sensitivity. RIGHT BREAST: No significant suspicious finding. Benign calcification upper outer quadrant LEFT BREAST: No significant suspicious finding. [place] marker indicates a palpable mass lower outer [...] Blanton MD on 05/14/2021 at 09:33 Normal [facility] US BREAST LEFT LIMITEDon US BREAST LEFT LIMITED Patient: VERA PLEITEZ Exam Date: 05/14/2021 : 1985 Gender:F Ordering : DR MARIA D PEDERSON . Admission #: [id number] Family : Order #: [id number] CLICK HERE TO VIEW EXAM RADIOLOGY REPORT [...] lymphoma cancer at age 17. LOCATION: [facility] BREAST COMPOSITION: Heterogeneously dense,which may obscure small masses. FINDINGS: DIAGNOSTIC CATEGORY 2--BENIGN FINDING: The breasts are medium in size with dense fibroglandular tissue limiting diagnostic sensitivity. RIGHT BREAST: No significant suspicious finding. Benign calcification upper outer quadrant LEFT BREAST: No significant suspicious finding. [place] marker indicates a palpable mass lower outer [...] Earnestine Blanton MD on 05/14/2021 at 09:33 [facility] PAP ACOG PANEL 2: 30 to 65on 2020 . . Normal [facility] Comment on above: Result Comment: Perf ormed at: WB Performed By: #### [id number] #### [facility] [address] [address] Doloresdarryl Clarke Age Gdln ACOG Testing 30-65 Normal [facility] Comment on above: Performed By: #### [id number] #### [facility] [address] [address] Dolores Clarke DIAGNOSIS: Comment Normal [facility] Comment on above: Result Comment: NEGA TIVE FOR INTRAEPITHELIAL LESION OR MALIGNANCY. Performed at: WB Performed By: #### [id number] #### [facility] [address] [place] [address] Dolores Clarke HPV Aptima Negative Normal Negative [facility] Comment on above: Result Comment: This nucleic acid amplification test detects fourteen high-risk HPV types (16,18,31,33,35,39,45,51,52,56,58,59,66,68) without differentiation. Performed at: =G Performed By: #### [id number] #### [facility] [address] [place] [address] Dolores Clarke Methodology: Comment Normal [facility] Comment on above: Result Comment: This liquid based ThinPrep(R) pap test was screened with the use of an image guided system. Performed at: WB Performed By: #### [id number] #### [facility] [address] [place] [address] Dolores Tricia Note: Comment Normal [facility] Comment on above: Result Comment: The Pap smear is a screening test designed to aid in the detection of premalignant and malignant conditions of the uterine cervix. It is not a diagnostic procedure and should not be used as the sole means of detecting cervical cancer. Both false-positive and false-negative reports do occur. . Performed at: WB Performed By: #### [id number] #### [facility] [address] [place] [address] Dolores Tricia Performed by: Comment Normal [facility] Comment on above: Result Comment: Renzo Gann, Freelance Recruiter (ASCP) Performed at: WB Performed By: #### [id number] #### [facility] [address] [place] [address] Dolores Clarke Specimen adequacy: Comment Normal [facility] Comment on above: Result Comment: Sati sfactory for evaluation. Endocervical and/or squamous metaplastic cells (endocervical component) are present. Performed at: WB Performed By: #### [id number] #### [facility] [address] [place] [address] Dolores Clarke HCG, Quanton 06-15-2017 HCG, Quant 9820 IU/L High <5 [facility] Comment on above: Result Comment: Non- preg premeno <=5Postmeno <=8Male <=3If HCG results do not concur with clinical observations, additional testing to confirm result is recommended. This test is not labeled for use as a tumor marker.[address] [address] Performed By: #### B HCG ####[address] [address] HCG, Quanton 06-04-2017 HCG, Quant 166 IU/L High <5 [facility] Comment on above: Result Comment: Non- preg premeno <=5Postmeno <=8Male <=3If HCG results do not concur with clinical observations, additional testing to confirm result is recommended. This test is not labeled for use as a tumor marker.Performed at [facility] [address] [place] [address] Performed By: #### B HCG ####[facility] [place] [address] CBC with Diffon 06-03-2017 Abs. Basophil 0.00 k/uL Normal 0.0-0.2 [facility] Comment on above: Performed By: #### C DP, PROL, BHCG, FT4, INSU, LH, PROG, TSH, GLU ####[address] [address] Abs.Neutrophil (Seg) 3.40 k/uL Normal 1.8-7.7 [facility] Comment on above: Performed By: #### C DP, PROL, BHCG, FT4, INSU, LH, PROG, TSH, GLU ####[address] [address] Basophils/100 WBC Auto (Bld) 1 % Normal [facility] Comment on above: Performed By: #### C DP, PROL, BHCG, FT4, INSU, LH, PROG, TSH, GLU ####[address] [place] [address] Eosinophils 0.10 10*3/uL Normal 0.0-0.4 [facility] Comment on above: Performed By: #### C DP, PROL, BHCG, FT4, INSU, LH, PROG, TSH, GLU ####[place] [address] Eosinophils/100 leukocytes 2 % Normal [facility] Comment on above: Performed By: #### C DP, PROL, BHCG, FT4, INSU, LH, PROG, TSH, GLU ####[place] [address] Erythrocyte distribution width Auto Ratio (RBC) 18.5 % High 12.5-15.4 [facility] Comment on above: Performed By: #### C DP, PROL, BHCG, FT4, INSU, LH, PROG, TSH, GLU ####[place] [address] Erythrocyte morphology ANISOCYTOSIS PRESENT Normal [facility] Comment on above: Result Comment: MICR OCYTOSIS PRESENT[address] [address] Performed By: #### C DP, PROL, BHCG, FT4, INSU, LH, PROG, TSH, GLU ####[place] [address] Erythrocytes (RBC) 4.05 10*6/uL Normal 4.0-5.2 [facility] Comment on above: Performed By: #### C DP, PROL, BHCG, FT4, INSU, LH, PROG, TSH, GLU ####[address] [address] Hematocrit (HCT) 29.6 % Low 36-46 [facility] Comment on above: Performed By: #### C DP, PROL, BHCG, FT4, INSU, LH, PROG, TSH, GLU ####[address] [address] Hemoglobin mass conc (Bld) 9.6 g/dL Low 12.0-16.0 [facility] Comment on above: Performed By: #### C DP, PROL, BHCG, FT4, INSU, LH, PROG, TSH, GLU ####[address] [address] Lymphocytes 1.40 10*3/uL Normal 1.0-4.8 [facility] Comment on above: Performed By: #### C DP, PROL, BHCG, FT4, INSU, LH, PROG, TSH, GLU ####[address] [address] Lymphocytes/100 leukocytes 27 % Normal [facility] Comment on above: Performed By: #### C DP, PROL, BHCG, FT4, INSU, LH, PROG, TSH, GLU ####[address] [address] MCH 23.7 pg Low 26-34 [facility] Comment on above: Performed By: #### C DP, PROL, BHCG, FT4, INSU, LH, PROG, TSH, GLU ####[address] [address] MCHC mass conc (RBC) 32.4 g/dL Normal 31-37 [facility] Comment on above: Performed By: #### C DP, PROL, BHCG, FT4, INSU, LH, PROG, TSH, GLU ####[address] [address] MCV 73.1 fL Low 80-100 [facility] Comment on above: Performed By: #### C DP, PROL, BHCG, FT4, INSU, LH, PROG, TSH, GLU ####[address] [address] Monocytes 0.30 10*3/uL Normal 0.1-1.2 [facility] Comment on above: Performed By: #### C DP, PROL, BHCG, FT4, INSU, LH, PROG, TSH, GLU ####[address] [address] Monocytes/100 leukocytes 6 % Normal [facility] Comment on above: Performed By: #### C DP, PROL, BHCG, FT4, INSU, LH, PROG, TSH, GLU ####[place] [address] Neutrophil (Seg) 64 % Normal [facility] Comment on above: Performed By: #### C DP, PROL, BHCG, FT4, INSU, LH, PROG, TSH, GLU ####[address] [address] Platelet mean volume (PMV) 7.8 fL Normal 6.0-12.0 [facility] Comment on above: Performed By: #### C DP, PROL, BHCG, FT4, INSU, LH, PROG, TSH, GLU ####[place] [address] Platelets 300 10*3/uL Normal 140-450 [facility] Comment on above: Performed By: #### C DP, PROL, BHCG, FT4, INSU, LH, PROG, TSH, GLU ####[address] [address] WBC (Leukocytes) 5.2 10*3/uL Normal 3.5-11.0 [facility] Comment on above: Performed By: #### C DP, PROL, BHCG, FT4, INSU, LH, PROG, TSH, GLU ####[address] [address] Auto Diff Performed NOT REPORTED Normal [facility] Comment on above: Performed By: #### C DP, PROL, BHCG, FT4, INSU, LH, PROG, TSH, GLU ####[address] [address] Platelets NOT REPORTED Normal [facility] Comment on above: Performed By: #### C DP, PROL, BHCG, FT4, INSU, LH, PROG, TSH, GLU ####[address] [address] WBC Morphology NOT REPORTED Normal [facility] Comment on above: Performed By: #### C DP, PROL, BHCG, FT4, INSU, LH, PROG, TSH, GLU ####[address] [address] Glucoseon 06-03-2017 Glucose mass conc 96 mg/dL Normal 70-99 [facility] Comment on above: Result Comment: [address] [address] Performed By: #### C DP, PROL, BHCG, FT4, INSU, LH, PROG, TSH, GLU ####[address] [address] HCG, Quanton 06-03-2017 HCG, Quant 65 IU/L High <5 [facility] Comment on above: Result Comment: Non- preg premeno <=5Postmeno <=8Male <=3If HCG results do not concur with clinical observations, additional testing to confirm result is recommended. This test is not labeled for use as a tumor marker.[address] [address] Performed By: #### C DP, PROL, BHCG, FT4, INSU, LH, PROG, TSH, GLU ####[address] [address] Insulinon 06-03-2017 Insulin 10.0 mU/L Normal [facility] Comment on above: Performed By: #### C DP, PROL, BHCG, FT4, INSU, LH, PROG, TSH, GLU ####[address] [facility] Comment on above: Result Comment: Fast in.6-24.930 min: 20-63807 min: 29-8890 min: 26-87195 min: 22-[address] [address] Performed By: #### C DP, PROL, BHCG, FT4, INSU, LH, PROG, TSH, GLU ####[address] [address] Collection Info. FASTING Normal [facility] Comment on above: Performed By: #### C DP, PROL, BHCG, FT4, INSU, LH, PROG, TSH, GLU ####[address] [address] Luteinizing Hormoneon 2016 Luteinizing Hormone 0.6 U/L Low 1.0-95.6 [facility] Comment on above: Result Comment: Refe rence Range:Male: 1.7-8.6Ovulating Female: Follicular Phase 2.4-12.6 Ovulation Phase 14.0-95.6 Luteal Phase 1.0-11.4Postmenopausal Female: 7.7-58.[address] [address] Performed By: #### C DP, PROL, BHCG, FT4, INSU, LH, PROG, TSH, GLU ####[address] [address] Progesteroneon 06-03-2017 Progesterone 17.44 ng/mL Normal [facility] Comment on above: Result Comment: FEMA LE (healthy): Follicular phase 0.06-0.89 Ovulation phase 0.12-12.00 Luteal phase 1.83-23.90Postmenopausal <0.[address] [address] Performed By: #### C DP, PROL, BHCG, FT4, INSU, LH, PROG, TSH, GLU ####[address] [address] Prolactinon 06-03-2017 Prolactin 13.77 ug/L Normal 4.79-23.30 [facility] Comment on above: Result Comment: The presence of macroprolactin may cause interference in female patients with various endocrinological diseases or during .[address] [address] Performed By: #### C DP, PROL, BHCG, FT4, INSU, LH, PROG, TSH, GLU ####[address] [address] Thyroid Stim. Horm.on 2016 Thyroid stimulating hormone (TSH) 1.67 m[IU]/L Normal 0.30-5.00 [facility] Comment on above: Result Comment: [facility] [employer] [address] [place] [address] Performed By: #### C DP, PROL, BHCG, FT4, INSU, LH, PROG, TSH, GLU ####[address] [address] Thyroxine, Freeon 06-03-2017 Thyroxine, Free 1.21 ng/dL Normal 0.93-1.70 [facility] Comment on above: Result Comment: [facility] [employer] [address] [place] [address] Performed By: #### C DP, PROL, BHCG, FT4, INSU, LH, PROG, TSH, GLU ####[address] [address] Vital Signs Date Time Vital Sign Value Performing Clinician Facility 03-15-2024 18:37-0400 Body height 170.18 cm [facility] 03-15-2024 18:37-0400 Body mass index (BMI) [Ratio] 25.7 kg/m2 [facility] 03-15-2024 18:37-0400 Body temperature 98.3 [degF] [facility] 03-15-2024 18:37-0400 Body weight 74.61 kg [facility] 03-15-2024 18:37-0400 Heart rate 78 /min [facility] 03-15-2024 18:37-0400 Respiratory rate 18 /min [facility] 03-15-2024 18:37-0400 SaO2% (BldA) [Mass fraction] 98 % [facility] 08-05-2021 10:00-0500 Body height 167.64 cm Shannan Kee Other [facility] [employer] Other 08-05-2021 10:00-0500 Body temperature 96 [degF] Shannan Chilango Other [employer] Other 08-05-2021 10:00-0500 Respiratory rate 18 /min Shannan Chilango Other [employer] Other 08-05-2021 10:00-0500 SaO2% (BldA) [Mass fraction] 99 % Shannan Chilango Other [employer] Other 07-20-2021 21:28-0500 Body height 167.64 cm PHYSICIAN NO [facility] 07-20-2021 21:28-0500 Body mass index (BMI) [Ratio] 23.3 kg/m2 PHYSICIAN NO [facility] 07-20-2021 21:28-0500 Body temperature 98.1 [degF] PHYSICIAN NO [facility] 07-20-2021 21:28-0500 Body weight 65.77 kg PHYSICIAN NO [facility] 07-20-2021 21:28-0500 Diastolic blood pressure 65 mm[Hg] PHYSICIAN NO [facility] 07-20-2021 21:28-0500 Heart rate 84 /min PHYSICIAN NO [facility] 07-20-2021 21:28-0500 Respiratory rate 18 /min PHYSICIAN NO [facility] 07-20-2021 21:28-0500 SaO2% (BldA) [Mass fraction] 100 % PHYSICIAN NO [facility] 07-20-2021 21:28-0500 Systolic blood pressure 145 mm[Hg] PHYSICIAN NO [facility] 06-20-2021 15:00-0400 Body height 167.64 cm Bridger Stephens Other [employer] Other 06-20-2021 15:00-0400 Body mass index (BMI) [Ratio] 23.08 kg/m2 Bridger Stephens Other [employer] Other 06-20-2021 15:00-0400 Body weight 64.86 kg Bridger Stephens Other [employer] Other Encounters Encounter Date Encounter Type Care Provider Facility Start: 04-26-2024 ambulatory Hailee L Markell Facility: [facility] Start: 03-28-2024 ambulatory Hailee Markell Facility:[facility] [place] Start: 03-16-2024 End: 03-16-2024 ambulatory PHYSICIAN NO [facility] Work Phone: Start: 03-16-2024 End: 03-16-2024 Departed Referred STAS Echols Work Phone: [facility] [place] Work Phone: Start: 03-15-2024 End: 03-15-2024 ambulatory [facility] Work Phone: Start: 03-15-2024 End: 03-15-2024 Patient encounter procedure [facility] Work Phone: Start: 01-07-2024 End: 01-07-2024 ambulatory GRISELDA MARTEL Not Available Start: 10-17-2021 End: 10-18-[address] DOCTOR LINTON Facility:[facility] Start: 10-05-2021 End: 10-06-[address] DOCTOR LINTON Facility:[facility] Start: 08-05-2021 End: 08-05-2021 ambulatory Shannan Kee Other [facility] Other Start: 08-05-2021 Office outpatient visit 15 minutes Shannan Kee [facility] Start: 07-20-2021 End: 07-20-2021 Emergency department patient visit PHYSICIAN JACKY SANTOYO [facility] Start: 06-20-2021 End: 06-21-2021 ambulatory BRIDGER STEPHENS Facility:[facility] Start: 06-20-2021 Office outpatient ne w 30 minutes Bridger Stephens [facility] Start: 05-14-2021 End: 05-15-[address] DOCTOR LINTON Facility:[facility] Start: 11-13-2020 End: 11-13-[address] MARIA D EPDERSON Facility:[facility] Start: 06-15-2017 End: 06-16-[address] [facility] Start: 06-04-2017 End: 06-05-2017 Ambulatory AKIKO [facility] Start: 06-03-2017 End: 06-04-2017 Ambulatory AKIKO [facility] Procedures Date Procedure Procedure Detail Performing Clinician Start: 06-15-2017 HCG, QUANTITATIVE, AKIKO POP Start: 06-04-2017 HCG, QUANTITATIVE, AKIKO POP Start: 06-03-2017 CBC WITH AUTO DIFFERENTIAL AKIKO POP Start: 06-03-2017 GLUCOSE, RANDOM AKIKO POP Start: 06-03-2017 HCG, QUANTITATIVE, AKIKO POP Start: 06-03-2017 INSULIN, TOTAL AKIKO YOU Start: 06-03-2017 LUTEINIZING HORMONE LAK KAITLYNN POP Start: 06-03-2017 PROGESTERONE AKIKO CAMPBELL SELL Start: 06-03-2017 PROLACTIN AKIKO CAMPBE[facility] SELL Start: 06-03-2017 T4, FREE AKIKO CAMPBELL SELL Start: 06-03-2017 TSH WITHOUT REFLEX TOBI POP Plan of Treatment Date Care Activity Detail Author Start: 03-16-2024 Herpes simplex virus identified in Unspecified specimen by Organism specific culture [facility] Start: 03-16-2024 [facility] Atopobium vaginae DN A [Presence] in Vaginal fluid by TENA with probe detection [facility] Bacterial vaginosis associated bacterium 2 DNA [Presence] in Vaginal fluid by TENA with probe detection [facility] Megasphaera sp type 1 DNA [Presence] in Vaginal fluid by TENA with probe detection [facility] Patient Education Care For Your Stitches (ED) Laceration (ED) [facility] Patient referral [facility] Payers Date Payer Category Payer Self-pay [id number] [employer] ( and others) [id number] 2014 Unknown [id number] 1985 Unknown [id number] 1983 Unknown [id number] 1983 Unknown [id number] 1983 Unknown [id number] 1983 Unknown [id number] 1983 Unknown [id number] 1983 Unknown [id number] 1959 Unknown [id number] Unknown [id number] Unknown [id number] Social History Date Type Detail Facility Start: 07-20-2021 End: 03-15-2024 Tobacco smoking status NHIS Never smoked tobacco (finding) [facility] Start: 1985 Sex Assigned At Female F [facility] Sex Assigned At Sex Assigned At Bir th [facility] [employer] Other Evaluation note 08-05-2021 Note Date & [...] if symptoms persist or do not improve *HANOUT GIVEN ON OTC TREATMENTS, FOLLOW UP AND [...] Patient care instructions given in writting by [facility] Care At Home document. [employer] Other Clinical Note 06-20-2021 Note Date & [...] by: JENNIFER BUSH Date: 2021-06-20 21:34 [facility] Evaluation note 06-20-2021 Note Date & [...] We discussed that this may be a intermediate problem. Advised patient limit her activity while knee is flared, and may then slowly progress back into her regular sporting activity. If continues to have issues/pain recurrance, may consider MRI for evaluation for meniscal tear. [employer] Other Evaluation note Note Date & Type Note Facility Evaluation note No assessment information availa [facility] Evaluation note Note Date & Type Note Facility Evaluation note Diagnosis Onset Date Encounter for assessment of STD exposure acute [facility] Work Phone: History general Narrative - Reported Note Date & Type Note Facility History general Narrative - Reported Type Surgical History C section Hospitalization History see above [employer] Other Hospital Discharge instructions Note Date & [...] [employer] [place] Follow with your family doctor [facility] Summary Purpose Family History No Family History Records Found Relationship Condition Age at Onset Recorded Date/T johanna father Unknown Advance Directives No Advanced Directives Records Found Advance Directive Response Recorded Date/ Time Advance Directives No June 9:23pm Advance Directive Response Recorded Date/ Time Advance Directives No June 10:23pm Chief Complaint and Reason for Visit Chief Complaint left knee lac-laft h and lac-fell on glass Chief Complaint Poss yeast infection , Std check Chief Complaint Poss yeast infection , Std check Vaginal Discharge Vaginal lesion Reason for Visit Encounter for assess ment of STD exposure Additional Source Comments INFORMATION SOURCE (unrecogn ized section and content) DATE CREATED AUTHOR 02/16/2018 [facility] DATE CREATED AUTHOR AUTHOR'S ORGANIZ ATION 02/16/2018 [facility] DATE CREATED AUTHOR AUTHOR'S ORGANIZ ATION 10/19/2021 [facility] DATE CREATED AUTHOR AUTHOR'S ORGANIZ ATION 01/09/2024 [facility] EPIC DATE CREATED AUTHOR AUTHOR'S ORGANIZ ATION 03/25/2024 [facility] DATE CREATED AUTHOR AUTHOR'S ORGANIZ ATION 03/29/2024 [facility] Goals (unrecognized section and content) Goals may be documented in a n alternate sectionNo InformationNo InformationGoals may be documented in an alternate sectionGoals may be documented in an alternate section REASON FOR VISIT (unrecogniz ed section and content) Right Knee Pain#1 BLACK ACAD IA, NAUSEA, VOMITTING, COVID Provider Visit Care Teams (unrecognized sec tion and content) Team Status: Active Member Role Status Dates PHYSICIAN NO FAMILY Primary Care Provider Active Team Status: Inactive Member Role Status Dates PHYSICIAN NO FAMILY Primary Care Provider Active Start: March 15, 2024 End: March 15, 2024 Jessica Echols APRN Attending Provider Active S tart: March 15, 2024 End: March 15, 2024 Team Status: Inactive Member Role Status Dates Jessica Echols APRN Attending Provider Active S tart: March 16, 2024 End: March 16, 2024 FOR RECORDS PERTAINING TO PATIENTS WHO ARE [...] BE BASED ON THE PRIMARY CLINICAL RECORDS. [facility] [employer] [facility]. provides no warranty or guarantee of the accuracy or completeness of information in this document.
== END 2024-04-01 09:20 | disposition home or self-care (01) ==
LOC: EC 09:19
PROVIDERS: PCP Nurse Practitioner Primary Care; Visit Provider Podiatrist Foot & Ankle Surgery
DX: M79.672 Pain in left foot (principal)
CPT/HCPCS: 73630

== ENCOUNTER 2024-05-16 13:45 | Outpatient (OUT) | payer OTHER, SELFPAY ==
--- NOTE | 2024-05-16 13:56 | MM_ITS ---
Patient Name: VERA PLEITEZ MR#: [id number] : 1985 Exam Date: 05/16/2024 Ordering Doctor: DR Fox Ram . RADIOLOGY REPORT PROCEDURE: MM TOMOSYNTHESIS SCREENING BI COMPARISON: MG MAMM DIAGNOSTIC 3D DIPTI CAD, 05/14/2021. INDICATIONS: ENCOUNTER FOR SCREENING MAMMOGRAM Z12.31 Calculator Name NCI Breast Cancer Risk Assessment Tool 5 Year Breast Cancer Risk 0.50% Lifetime Breast Cancer Risk 8.30% Personal Breast Cancer No Personal Ovarian Cancer No Treatments None Family Cancers Brother with lymphoma cancer at age 19. LOCATION: [facility] BREAST COMPOSITION: The breasts are heterogeneously dense,which may obscure small masses. FINDINGS: DIAGNOSTIC CATEGORY 2--BENIGN FINDING. NO CHANGE FROM COMPARISON. Scattered benign-appearing lymph nodes are present. RIGHT BREAST: No significant suspicious finding. LEFT BREAST: No significant suspicious finding. RECOMMENDATIONS: ROUTINE MAMMOGRAM AND CLINICAL EVALUATION IN 12 MONTHS. PLEASE NOTE: A NORMAL MAMMOGRAM DOES NOT EXCLUDE THE POSSIBILITY OF BREAST CANCER. A CLINICALLY SUSPICIOUS PALPABLE LUMP SHOULD BE BIOPSIED. Dictated by: Lance Blanton MD on 05/16/2024 at 14:55 Approved by: Lance Blanton MD on 05/16/2024 at 14:56
--- OUTSIDE RECORDS SUMMARY | 2024-05-16 14:17 | XMS_ITS | CCD ---
Author Organization [facility] Care Team Providers Care Assistant Paralegal Name Role Phone AKIKO POP Unavailable Unavailable MOOSA, THERESE F Unavailable Unavailable FINTENISHI Farooq Unavailable Unavailable MOOSA, THERESE F Unavailable Unavailable AKIKO POP Unavailable Unavailable MOOSA, THERESE F Unavailable Unavailable NO FAMILY, PHYSICIAN Primary Care Provider VANCE Grijalva Emergency Provider [phone] MISC, DR GILMORE Consulting Unavailable MISC, DR GILMORE Attending Unavailable MISC, DR GILMORE Admitting Unavailable MISC, DR GILMORE Consulting Unavailable MISC, DR GILMORE Attending Unavailable MISC, DR GILMORE Admitting Unavailable OLEXA, BRIDGER Admitting Unavailable OLEXA, BRIDGER Attending Unavailable ZIEBER, DR JENNIFER Gimenez Consulting Unavailable OLEXA, BRIDGER Consulting Unavailable MISC, DR GILMORE Primary Care Unavailable REPUBLIC, DR EARNESTINE Johnson Consulting Unavailable DACIA, DR KILLIAN Admitting Unavailable DACIA, DR KILLIAN Attending Unavailable DACIA, DR KILLIAN Consulting Unavailable DACIA, DR KILLIAN Admitting Unavailable DACIA, DR KILLIAN Consulting Unavailable DACIA, DR KILLIAN Attending Unavailable Olexa, Bridger Unavailable Shannan Kee Unavailable GRISELDA MARTEL Attending Unavailable STAS Echols Attending Provider [phone] NO FAMILY, PHYSICIAN Primary Care Unavailable Jessica [...] sources) Encounter for examination for recruitment to [employer]; Translations: [ENC EXAM RECRUITMENT ARMED Pull] Onset: 10-05-2021 Episodic Immunizations and screening for [...] Culture and Typing Comment Normal . [facility] Comment on above: Result Comment: Nega tive No Herpes simplex virus isolated. Performed at: - [facility] [id number] Asw Specialist: Golden Hernandez PhD, Phone: [phone] PERFORMED BY: [address] [address] PATHOLOGIST MERCHANDISE DIRECTOR MENDEZ COOL M.D. Performed By: #### V AGINITIS+, HSV CULTwTYPING, HERPES 1,2 #### [facility] , Herpes Simplex 1 and 2, NAAo n 03-16-2024 HSV 1 TENA Positive Critically abnormal Negative [facility] Comment on above: Result Comment: This test was developed and its performance characteristics determined by [facility]. It has not been cleared or approved by the Food and Drug Administration. Performed By: #### V AGINITIS+, HSV CULTwTYPING, HERPES 1,2 #### [facility] , HSV 2 TENA Negative Normal Negative [facility] Comment on above: Result Comment: This test was developed and its performance characteristics determined by [facility]. It has not been cleared or approved by the Food and Drug Administration. Performed at: [address] [id number] Asw Specialist: Polina Aaron MD, Phone: [phone] Performed By: #### V AGINITIS+, HSV CULTwTYPING, HERPES 1,2 #### [facility] , Vaginitis Plus (VG+)on 03-16 Atopobium Vaginae High - 2 Critically abnormal . [facility] Comment on above: Result Comment: This test was developed and its performance characteristics determined by [facility]. It has not been cleared or approved by the Food and Drug Administration. Performed By: #### V AGINITIS+, HSV CULTwTYPING, HERPES 1,2 #### [facility] , BVAB2 Moderate - 1 Normal . [facility] Comment on above: Result Comment: This test was developed and its performance characteristics determined by [facility] It has not been cleared or approved by the Food and Drug Administration. Performed By: #### V AGINITIS+, HSV CULTwTYPING, HERPES 1,2 #### [facility] , Rox Albicans, TENA Negative Normal Negative [facility] Comment on above: Result Comment: This test was developed and its performance characteristics determined by [facility] It has not been cleared or approved by the Food and Drug Administration. Performed By: #### V AGINITIS+, HSV CULTwTYPING, HERPES 1,2 #### [facility] , Rox Glabrata, TENA Negative Normal Negative [facility] Comment on above: Result Comment: This test was developed and its performance characteristics determined by [facility]. It has not been cleared or approved by the Food and Drug Administration. Performed By: #### V AGINITIS+, HSV CULTwTYPING, HERPES 1,2 #### [facility] , Chlamydia Trachomotis, TENA Negative Normal Negative [facility] Comment on above: Performed By: #### V AGINITIS+, HSV CULTwTYPING, HERPES 1,2 #### [facility] , Megasphaera Low - 0 Normal . [facility] Comment on above: Result [...] Neisseria Gonorrhoeae, TENA Negative Normal Negative [facility] Comment on above: Result Comment: Perf ormed at: - [facility] [address] [id number] Asw Specialist: Polina Aaron MD, Phone: [phone] Performed By: #### V AGINITIS+, HSV CULTwTYPING, HERPES 1,2 #### [facility] , Tric Vag TENA Negative Normal Negative [facility] Comment on above: Performed By: #### V AGINITIS+, HSV CULTwTYPING, HERPES 1,2 #### [facility] , UA RANDOMon 10-17-2021 Bilirubin Ql (U) Negative Normal NEGATIVE [facility] Comment on above: Performed By: #### U A #### [facility] [address] [place] [address] Dr. Luis Enrique Espino Clarity (U) CLEAR Normal CLEAR [facility] Comment on above: Performed By: #### U A #### [facility] [address] [place] [address] Dr. Luis Enrique Espino Color (U) YELLOW Normal YELLOW [facility] Comment on above: Performed By: #### U A #### [facility] [address] [place] [address] Dr. Luis Enrique Espino Glucose Ql (U) Negative Normal NEGATIVE [facility] Comment on above: Performed By: #### U A #### [facility] [address] [place] [address] Dr. Luis Enrique Espino Hemoglobin Ql (U) Negative Normal NEGATIVE [facility] Comment on above: Performed By: #### U A #### [facility] [address] [place] [address] Dr. Luis Enrique Espino Ketones Ql (U) Negative Normal NEGATIVE [facility] Comment on above: Performed By: #### U A #### [facility] [address] [place] [address] Dr. Luis Enrique Espino LEUKOCYTES Negative Normal NEGATIVE [facility] Comment on above: Performed By: #### U A #### [facility] [address] [place] [address] Dr. Luis Enrique Espino Nitrite Ql (U) Negative Normal NEGATIVE [facility] Comment on above: Performed By: #### U A #### [facility] [address] [place] [address] Dr. Luis Enrique Espino pH (U) 7.5 [pH] Normal 5-9 [facility] Comment on above: Performed By: #### U A #### [facility] [address] [place] [address] Dr. Luis Enrique Espino SPEC GRAVITY 1.020 Normal 1.005-<=1.025 [facility] Comment on above: Performed By: #### U A #### [facility] [address] [place] [address] Dr. Luis Enrique Espino UA PROTEIN Negative Normal NEGATIVE/ TRACE [facility] Comment on above: Performed By: #### U A #### [facility] [address] [place] [address] Dr. Luis Enrique Espino Urobilinogen Qn (U) 1.0 {Aura'U}/dL Normal 0.2 - 1.0 [facility] Comment on above: Performed By: #### U A #### [facility] [address] [place] [address] Dr. Luis Enrique Espino DRUG SCREEN RAPID (URINE)on 10-05-2021 AMP Negative Normal NEGATIVE [facility] Comment on above: Performed By: #### D RUGRPD #### [facility] [address] [place] [address] Dr. Luis Enrique Espino BAR Negative Normal NEGATIVE [facility] Comment on above: Performed By: #### D RUGRPD #### [facility] [address] [place] [address] Dr. Luis Enrique Espino BUP Negative Normal NEGATIVE [facility] Comment on above: Performed By: #### D RUGRPD #### [facility] [address] [place] [address] Dr. Luis Enrique Espino BZO Positive Abnormal NEGATIVE [facility] Comment on above: Performed By: #### D RUGRPD #### [facility] [address] [place] [address] Dr. Luis Enrique Espino MADONNA Negative Normal NEGATIVE [facility] Comment on above: Performed By: #### D RUGRPD #### [facility] [address] [place] [address] Dr. Luis Enrique Espino CUT-OFFS SEE BELOW Normal [facility] Comment on above: Result Comment: AMP [...] ng/mL Performed By: #### D RUGRPD #### [facility] [address] [place] [address] Dr. Luis Enrique Espino DRUG CUT HEADER DRUG CLASS TEST SYSTEM CUT-OFF CONCENTRATIONS ARE FOLLOWS: Normal [facility] Comment on above: Performed By: #### D RUGRPD #### [facility] [address] [place] [address] Dr. Luis Enrique Espino mAMP Negative Normal NEGATIVE [facility] Comment on above: Performed By: #### D RUGRPD #### [facility] [address] [place] [address] Dr. Luis Enrique Espino MTD Negative Normal NEGATIVE [facility] Comment on above: Performed By: #### D RUGRPD #### [facility] [address] [place] [address] Dr. Luis Enrique Espino OPI Negative Normal NEGATIVE [facility] Comment on above: Performed By: #### D RUGRPD #### [facility] [address] [place] [address] Dr. Luis Enrique Espino OXY Negative Normal NEGATIVE [facility] Comment on above: Performed By: #### D RUGRPD #### [facility] [address] [place] [address] Dr. Luis Enrique Espino PCP Negative Normal NEGATIVE [facility] Comment on above: Performed By: #### D RUGRPD #### [facility] [address] [place] [address] Dr. Luis Enrique Espino PPX Negative Normal NEGATIVE [facility] Comment on above: Performed By: #### D RUGRPD #### [facility] [address] [place] [address] Dr. Luis Enrique Espino TCA Negative Normal NEGATIVE [facility] Comment on above: Performed By: #### D RUGRPD #### [facility] [address] [place] [address] Dr. Luis Enrique Espino THC Negative Normal NEGATIVE [facility] Comment on above: Performed By: #### D RUGRPD #### [facility] [address] [place], [place] [address] Dr. Luis Enrique ZHOU Quick Testingon 2020 Result Negative Nginx Other Quick Fluon 08-05-2021 FLUAV Ab CF (S) [Titer] Negative Nginx Other FLUBV Ab CF (S) [Titer] Negative Nginx Other MG MAMM DIAGNOSTIC 3D DIPTI CA Don 05-14-2021 MG MAMM DIAGNOSTIC 3D DIPTI CAD Patient: VERA PLEITEZ Exam Date: 05/14/2021 : 1985 Gender:F Ordering : DR MARIA D PEDERSON . Admission #: [id number] Family : Order #: [id number] CLICK HERE TO VIEW EXAM RADIOLOGY REPORT [...] lymphoma cancer at age 17. LOCATION: [facility] BREAST COMPOSITION: Heterogeneously dense,which may obscure small masses. FINDINGS: DIAGNOSTIC CATEGORY 2--BENIGN FINDING: The breasts are medium in size with dense fibroglandular tissue limiting diagnostic sensitivity. RIGHT BREAST: No significant suspicious finding. Benign calcification upper outer quadrant LEFT BREAST: No significant suspicious finding. [place] marker indicates a palpable mass lower outer [...] MD on 05/14/2021 at 09:33 Normal [facility] US BREAST LEFT LIMITEDon US BREAST LEFT LIMITED Patient: VERA PLEITEZ Exam Date: 05/14/2021 : 1985 Gender:F Ordering : DR MARIA D PEDERSON . Admission #: [id number] Family : Order #: [id number] CLICK HERE TO VIEW EXAM RADIOLOGY REPORT [...] lymphoma cancer at age 17. LOCATION: [facility] BREAST COMPOSITION: Heterogeneously dense,which may obscure small masses. FINDINGS: DIAGNOSTIC CATEGORY 2--BENIGN FINDING: The breasts are medium in size with dense fibroglandular tissue limiting diagnostic sensitivity. RIGHT BREAST: No significant suspicious finding. Benign calcification upper outer quadrant LEFT BREAST: No significant suspicious finding. [place] marker indicates a palpable mass lower outer [...] Blanton MD on 05/14/2021 at 09:33 [facility] PAP ACOG PANEL 2: 30 to 65on 2020 . . Normal [facility] Comment on above: Result Comment: Perf ormed at: WB Performed By: #### [id number] #### [facility] [address] [place] [address] Doloresdarryl Clarke Age Gdln ACOG Testing 30-65 Normal [facility] Comment on above: Performed By: #### [id number] #### [facility] [address] [place] [id number] Dolores Clarke DIAGNOSIS: Comment Normal [facility] Comment on above: Result Comment: NEGA TIVE FOR INTRAEPITHELIAL LESION OR MALIGNANCY. Performed at: WB Performed By: #### [id number] #### [facility] [address] [place] [address] Dolores Clarke HPV Aptima Negative Normal Negative [facility] Comment on above: Result Comment: This nucleic acid amplification test detects fourteen high-risk HPV types (16,18,31,33,35,39,45,51,52,56,58,59,66,68) without differentiation. Performed at: =G Performed By: #### [id number] #### [facility] [address] [place] [address] Dolores Clarke Methodology: Comment Normal [facility] Comment on above: Result Comment: This liquid based ThinPrep(R) pap test was screened with the use of an image guided system. Performed at: WB Performed By: #### [id number] #### [facility] [address] [place] [address] Dolores Tricia Note: Comment Normal [facility] Comment on above: Result Comment: The Pap smear is a screening test designed to aid in the detection of premalignant and malignant conditions of the uterine cervix. It is not a diagnostic procedure and should not be used as the sole means of detecting cervical cancer. Both false-positive and false-negative reports do occur. . Performed at: WB Performed By: #### [id number] #### [facility] [address] [place] [address] Dolores Tricia Performed by: Comment Normal [facility] Comment on above: Result Comment: Renzo Gann, High School Director (ASCP) Performed at: WB Performed By: #### [id number] #### [facility] [address] [place] [address] Dolores Clarke Specimen adequacy: Comment Normal [facility] Comment on above: Result Comment: Sati sfactory for evaluation. Endocervical and/or squamous metaplastic cells (endocervical component) are present. Performed at: WB Performed By: #### [id number] #### [facility] [address] [place] [address] Dolores Clarke HCG, Quanton 06-15-2017 HCG, Quant 9820 IU/L High <5 [facility] Comment on above: Result Comment: Non- preg premeno <=5Postmeno <=8Male <=3If HCG results do not concur with clinical observations, additional testing to confirm result is recommended. This test is not labeled for use as a tumor marker.[address] [place] [address] Performed By: #### B HCG ####[address] [address] HCG, Quanton 06-04-2017 HCG, Quant 166 IU/L High <5 [facility] Comment on above: Result Comment: Non- preg premeno <=5Postmeno <=8Male <=3If HCG results do not concur with clinical observations, additional testing to confirm result is recommended. This test is not labeled for use as a tumor marker.Performed at [facility] [address] [place] [address] Performed By: #### B HCG ####[facility] [place] [address] CBC with Diffon 06-03-2017 Abs. Basophil 0.00 k/uL Normal 0.0-0.2 [facility] Comment on above: Performed By: #### C DP, PROL, BHCG, FT4, INSU, LH, PROG, TSH, GLU ####[address] [address] Abs.Neutrophil (Seg) 3.40 k/uL Normal 1.8-7.7 [facility] Comment on above: Performed By: #### C DP, PROL, BHCG, FT4, INSU, LH, PROG, TSH, GLU ####[address] [address] Basophils/100 WBC Auto (Bld) 1 % Normal [facility] Comment on above: Performed By: #### C DP, PROL, BHCG, FT4, INSU, LH, PROG, TSH, GLU ####[address] [address] Eosinophils 0.10 10*3/uL Normal 0.0-0.4 [facility] Comment on above: Performed By: #### C DP, PROL, BHCG, FT4, INSU, LH, PROG, TSH, GLU ####[address] [address] Eosinophils/100 leukocytes 2 % Normal [facility] Comment on above: Performed By: #### C DP, PROL, BHCG, FT4, INSU, LH, PROG, TSH, GLU ####[place] [address] Erythrocyte distribution width Auto Ratio (RBC) 18.5 % High 12.5-15.4 [facility] Comment on above: Performed By: #### C DP, PROL, BHCG, FT4, INSU, LH, PROG, TSH, GLU ####[place] [address] Erythrocyte morphology ANISOCYTOSIS PRESENT Normal [facility] Comment on above: Result Comment: MICR OCYTOSIS [address]ENTNichole [address] [place] [address] Performed By: #### C DP, PROL, BHCG, FT4, INSU, LH, PROG, TSH, GLU ####[place] [address] Erythrocytes (RBC) 4.05 10*6/uL Normal 4.0-5.2 [facility] Comment on above: Performed By: #### C DP, PROL, BHCG, FT4, INSU, LH, PROG, TSH, GLU ####[place] [address] Hematocrit (HCT) 29.6 % Low 36-46 [facility] Comment on above: Performed By: #### C DP, PROL, BHCG, FT4, INSU, LH, PROG, TSH, GLU ####[address] [address] Hemoglobin mass conc (Bld) 9.6 g/dL Low 12.0-16.0 [facility] Comment on above: Performed By: #### C DP, PROL, BHCG, FT4, INSU, LH, PROG, TSH, GLU ####[address] [address] Lymphocytes 1.40 10*3/uL Normal 1.0-4.8 [facility] Comment on above: Performed By: #### C DP, PROL, BHCG, FT4, INSU, LH, PROG, TSH, GLU ####[address] [address] Lymphocytes/100 leukocytes 27 % Normal [facility] Comment on above: Performed By: #### C DP, PROL, BHCG, FT4, INSU, LH, PROG, TSH, GLU ####[address] [address] MCH 23.7 pg Low 26-34 [facility] Comment on above: Performed By: #### C DP, PROL, BHCG, FT4, INSU, LH, PROG, TSH, GLU ####[address] [address] MCHC mass conc (RBC) 32.4 g/dL Normal 31-37 [facility] Comment on above: Performed By: #### C DP, PROL, BHCG, FT4, INSU, LH, PROG, TSH, GLU ####[address] [address] MCV 73.1 fL Low 80-100 [facility] Comment on above: Performed By: #### C DP, PROL, BHCG, FT4, INSU, LH, PROG, TSH, GLU ####[address] [address] Monocytes 0.30 10*3/uL Normal 0.1-1.2 [facility] Comment on above: Performed By: #### C DP, PROL, BHCG, FT4, INSU, LH, PROG, TSH, GLU ####[address] [address] Monocytes/100 leukocytes 6 % Normal [facility] Comment on above: Performed By: #### C DP, PROL, BHCG, FT4, INSU, LH, PROG, TSH, GLU ####[place] [address] Neutrophil (Seg) 64 % Normal [facility] Comment on above: Performed By: #### C DP, PROL, BHCG, FT4, INSU, LH, PROG, TSH, GLU ####[place] [address] Platelet mean volume (PMV) 7.8 fL Normal 6.0-12.0 [facility] Comment on above: Performed By: #### C DP, PROL, BHCG, FT4, INSU, LH, PROG, TSH, GLU ####[place] [address] Platelets 300 10*3/uL Normal 140-450 [facility] Comment on above: Performed By: #### C DP, PROL, BHCG, FT4, INSU, LH, PROG, TSH, GLU ####[address] [address] WBC (Leukocytes) 5.2 10*3/uL Normal 3.5-11.0 [facility] Comment on above: Performed By: #### C DP, PROL, BHCG, FT4, INSU, LH, PROG, TSH, GLU ####[place] [address] Auto Diff Performed NOT REPORTED Normal [facility] Comment on above: Performed By: #### C DP, PROL, BHCG, FT4, INSU, LH, PROG, TSH, GLU ####[address] [address] Platelets NOT REPORTED Normal [facility] Comment on above: Performed By: #### C DP, PROL, BHCG, FT4, INSU, LH, PROG, TSH, GLU ####[address] [address] WBC Morphology NOT REPORTED Normal [facility] Comment on above: Performed By: #### C DP, PROL, BHCG, FT4, INSU, LH, PROG, TSH, GLU ####[address] [address] Glucoseon 06-03-2017 Glucose mass conc 96 mg/dL Normal 70-99 [facility] Comment on above: Result Comment: [address] [address] Performed By: #### C DP, PROL, BHCG, FT4, INSU, LH, PROG, TSH, GLU ####[address] [address] HCG, Quanton 06-03-2017 HCG, Quant 65 IU/L High <5 [facility] Comment on above: Result Comment: Non- preg premeno <=5Postmeno <=8Male <=3If HCG results do not concur with clinical observations, additional testing to confirm result is recommended. This test is not labeled for use as a tumor marker.[address] [address] Performed By: #### C DP, PROL, BHCG, FT4, INSU, LH, PROG, TSH, GLU ####[address] [address] Insulinon 06-03-2017 Insulin 10.0 mU/L Normal [facility] Comment on above: Performed By: #### C DP, PROL, BHCG, FT4, INSU, LH, PROG, TSH, GLU ####[address] [address] Reference Range Normal [facility] Comment on above: Result Comment: Fast in.6-24.930 min: 20-318[address] min: 29-8890 min: 26-55491 min: 22-[address] [address] Performed By: #### C DP, PROL, BHCG, FT4, INSU, LH, PROG, TSH, GLU ####[address] [address] Collection Info. FASTING Normal [facility] Comment on above: Performed By: #### C DP, PROL, BHCG, FT4, INSU, LH, PROG, TSH, GLU ####[address] [address] Luteinizing Hormoneon 2016 Luteinizing Hormone 0.6 U/L Low 1.0-95.6 [facility] Comment on above: Result Comment: Refe rence Range:Male: 1.7-8.6Ovulating Female: Follicular Phase 2.4-12.6 Ovulation Phase 14.0-95.6 Luteal Phase 1.0-11.4Postmenopausal Female: 7.7-58.[address] [address] Performed By: #### C DP, PROL, BHCG, FT4, INSU, LH, PROG, TSH, GLU ####[address] [address] Progesteroneon 06-03-2017 Progesterone 17.44 ng/mL [facility] Comment on above: Result Comment: FEMA LE (healthy): Follicular phase 0.06-0.89 Ovulation phase 0.12-12.00 Luteal phase 1.83-23.90Postmenopausal <0.[address] [address] Performed By: #### C DP, PROL, BHCG, FT4, INSU, LH, PROG, TSH, GLU ####[address] [address] Prolactinon 06-03-2017 Prolactin 13.77 ug/L Normal 4.79-23.30 [facility] Comment on above: Result Comment: The presence of macroprolactin may cause interference in female patients with various endocrinological diseases or during .[address] [address] Performed By: #### C DP, PROL, BHCG, FT4, INSU, LH, PROG, TSH, GLU ####[place] [address] Thyroid Stim. Horm.on 2016 Thyroid stimulating hormone (TSH) 1.67 m[IU]/L Normal 0.30-5.00 [facility] Comment on above: Result Comment: [facility] [employer] [address] [place] [address] Performed By: #### C DP, PROL, BHCG, FT4, INSU, LH, PROG, TSH, GLU ####[address] [address] Thyroxine, Freeon 06-03-2017 Thyroxine, Free 1.21 ng/dL Normal 0.93-1.70 [facility] Comment on above: Result Comment: [facility] [employer] [address] [place] [address] Performed By: #### C DP, PROL, BHCG, FT4, INSU, LH, PROG, TSH, GLU ####[address] [id number] Vital Signs Date Time Vital Sign Value Performing Clinician Facility 03-15-2024 18:37-0400 Body height 170.18 cm [facility] 03-15-2024 18:37-0400 Body mass index (BMI) [Ratio] 25.7 kg/m2 [facility] 03-15-2024 18:37-0400 Body temperature 98.3 [degF] [facility] 03-15-2024 18:37-0400 Body weight 74.61 kg [facility] 03-15-2024 18:37-0400 Heart rate 78 /min [facility] 03-15-2024 18:37-0400 Respiratory rate 18 /min [facility] 03-15-2024 18:37-0400 SaO2% (BldA) [Mass fraction] 98 % [facility] 08-05-2021 10:00-0500 Body height 167.64 cm Shannan Kee Other [facility] 08-05-2021 10:00-0500 Body temperature 96 [degF] Shannan Chilango Other [facility] 08-05-2021 10:00-0500 Respiratory rate 18 /min Shannan Chilango Other [facility] 08-05-2021 10:00-0500 SaO2% (BldA) [Mass fraction] 99 % Shannan Chilango Other [facility] 07-20-2021 21:28-0500 Body height 167.64 cm PHYSICIAN NO [facility] 07-20-2021 21:28-0500 Body mass index (BMI) [Ratio] 23.3 kg/m2 PHYSICIAN NO [facility] 07-20-2021 21:28-0500 Body temperature 98.1 [degF] PHYSICIAN NO [facility] 07-20-2021 21:28-0500 Body weight 65.77 kg PHYSICIAN NO [facility] 07-20-2021 21:28-0500 Diastolic blood pressure 65 mm[Hg] PHYSICIAN NO [facility] 07-20-2021 21:28-0500 Heart rate 84 /min PHYSICIAN NO [facility] 07-20-2021 21:28-0500 Respiratory rate 18 /min PHYSICIAN NO [facility] 07-20-2021 21:28-0500 SaO2% (BldA) [Mass fraction] 100 % PHYSICIAN NO [facility] 07-20-2021 21:28-0500 Systolic blood pressure 145 mm[Hg] PHYSICIAN NO [facility] 06-20-2021 15:00-0400 Body height 167.64 cm Bridger Stephens Other [facility] 06-20-2021 15:00-0400 Body mass index (BMI) [Ratio] 23.08 kg/m2 Bridger Stephens Other [facility] 06-20-2021 15:00-0400 Body weight 64.86 kg Bridger Stephens Other [facility] Other Encounters Encounter Date Encounter Type Care Provider Facility Start: 04-26-2024 End: 04-26-2024 ambulatory Hailee L Markell Facility:[facility] Start: 03-28-2024 ambulatory Hailee Markell Facility:[facility] [place] Start: 03-16-2024 End: 03-16-2024 ambulatory PHYSICIAN NO [facility] Work Phone: Start: 03-16-2024 End: 03-16-2024 Departed Referred STAS Echols Work Phone: [facility] [place] Work Phone: Start: 03-15-2024 End: 03-15-2024 ambulatory [facility] Work Phone: Start: 03-15-2024 End: 03-15-2024 Patient encounter procedure [facility] Work Phone: Start: 01-07-2024 End: 01-07-2024 ambulatory GRISELDA MARTEL Not Available Start: 10-17-2021 End: 10-18-[address] DOCTOR LINTON Facility:[facility] Start: 10-05-2021 End: 10-06-[address] DOCTOR LINTON Facility:[facility] Start: 08-05-2021 End: 08-05-2021 ambulatory Shannan Kee Other [facility] Other Start: 08-05-2021 Office outpatient visit 15 minutes Shannan Kee [facility] Start: 07-20-2021 End: 07-20-2021 Emergency department patient visit PHYSICIAN JACKY SANTOYO [facility] Start: 06-20-2021 End: 06-21-2021 ambulatory BRIDGER STEPHENS Facility:[facility] Start: 06-20-2021 Office outpatient ne w 30 minutes Bridger Stephens [facility] Start: 05-14-2021 End: 05-15-[address] DOCTOR LINTON Facility:[facility] Start: 11-13-2020 End: 11-13-[address] MARIA D PEDERSON Facility:[facility] Start: 06-15-2017 End: 06-16-2017 Ambulatory NISHI GUERRERO [facility] Start: 06-04-2017 End: 06-05-2017 Ambulatory AKIKO Corey [facility] Start: 06-03-2017 End: 06-04-2017 Ambulatory AKIKO Corey [facility] Procedures Date Procedure Procedure Detail Performing Clinician Start: 06-15-2017 HCG, QUANTITATIVE, AKIKO POP Start: 06-04-2017 HCG, QUANTITATIVE, AKIKO POP Start: 06-03-2017 CBC WITH AUTO DIFFERENTIAL AKIKO POP Start: 06-03-2017 GLUCOSE, RANDOM AKIKO POP Start: 06-03-2017 HCG, QUANTITATIVE, AKIKO POP Start: 06-03-2017 INSULIN, TOTAL AKIKO YOU Start: 06-03-2017 LUTEINIZING HORMONE ROBYN POP Start: 06-03-2017 PROGESTERONE AKIKO CAMPBELL SELL Start: 06-03-2017 PROLACTIN AKIKO CAMPBELL SELL Start: 06-03-2017 T4, FREE AKIKO CAMPBELL SELL Start: 06-03-2017 TSH WITHOUT REFLEX TOBI POP Plan of Treatment Date Care Activity Detail Author Start: 03-16-2024 Herpes simplex virus identified in Unspecified specimen by Organism specific culture [facility] Start: 03-16-2024 [facility] Atopobium vaginae DN A [Presence] in Vaginal fluid by TENA with probe detection [facility] Bacterial vaginosis associated bacterium 2 DNA [Presence] in Vaginal fluid by TENA with probe detection [facility] Megasphaera sp type 1 DNA [Presence] in Vaginal fluid by TENA with probe detection [facility] Patient Education Care For Your Stitches (ED) Laceration (ED) [facility] Patient referral [facility] Payers Date Payer Category Payer Self-pay [id number] [id number] [employer] ( and others) [id number] 2014 Unknown [id number] 1985 Unknown [id number] 1983 Unknown [id number] 1983 Unknown [id number] 1983 Unknown [id number] 1983 Unknown [id number] 1983 Unknown [id number] 1983 Unknown [id number] 1959 Unknown [id number] Unknown [id number] Unknown [id number] Social History Date Type Detail Facility Start: 07-20-2021 End: 03-15-2024 Tobacco smoking status NHIS Never smoked tobacco (finding) [facility] Start: 1985 Sex Assigned At Female F [facility] Sex Assigned At Sex Assigned At Bir th [facility] Other Evaluation note 08-05-2021 Note Date & [...] Patient care instructions given in writting by [facility] Care At Home document. [facility] Other Clinical Note 06-20-2021 Note Date & [...] by: JENNIFER BUSH Date: 2021-06-20 21:34 [facility] Evaluation note 06-20-2021 Note Date & [...] We discussed that this may be a residential problem. Advised patient limit her activity while knee is flared, and may then slowly progress back into her regular sporting activity. If continues to have issues/pain recurrance, may consider MRI for evaluation for meniscal tear. [facility] Other Evaluation note Note Date & Type Note Facility Evaluation note No assessment information availa [facility] Evaluation note Note Date & Type Note Facility Evaluation note Diagnosis Onset Date Encounter for assessment of STD exposure acute [facility] Work Phone: History general Narrative - Reported Note Date & Type Note Facility History general Narrative - Reported Type Surgical History C section Hospitalization History see above [facility] Other Hospital Discharge instructions Note Date & [...] [employer]hor [place]eline Follow with your family doctor [facility] Summary Purpose Family History No Family [...] content) DATE CREATED AUTHOR 02/16/[address] [facility] DATE CREATED AUTHOR AUTHOR'S ORGANIZ ATION 02/16/2018 [facility] DATE CREATED AUTHOR AUTHOR'S ORGANIZ ATION 10/19/2021 [facility] DATE CREATED AUTHOR AUTHOR'S ORGANIZ ATION 01/09/2024 [facility] EPIC DATE CREATED AUTHOR AUTHOR'S ORGANIZ ATION 03/25/2024 [facility] DATE CREATED AUTHOR AUTHOR'S ORGANIZ ATION 04/28/2024 [facility] Goals (unrecognized section and content) [...] ON THE PRIMARY CLINICAL RECORDS. [facility] [facility]. provides no warranty or guarantee of the accuracy or completeness of information in this document.
== END 2024-05-16 13:46 | disposition home or self-care (01) ==
LOC: MAMMO 13:48
PROVIDERS: Visit Provider Obstetrics & Gynecology
DX: Z12.31 Encounter for screening mammogram for malignant neoplasm of breast (principal); Z80.7 Family history of other malignant neoplasms of lymphoid, hematopoietic and related tissues
CPT/HCPCS: 77063; 77067

== ENCOUNTER 2025-01-10 19:05 | Outpatient (REF) | payer OTHER, SELFPAY ==
--- OUTSIDE RECORDS SUMMARY | 2019-07-19 07:04 | XMS_ITS | Continuity of Care Document ---
Author Organization [facility] Address [address] [place] [address] Phone Care Team Providers Care Car Body Inspector Name Role Phone Di KELLYMarlene Unavailable Unava ilable Allergies, Adverse Reactions, Alerts Substance Reaction Status Criticality No Known Allergies Active No Inform ation Medications Medication Instructions Dosage Effective Dates (start - stop) Status Comments scopolamine 1 mg over 3 days transdermal patch apply 1 patch by transdermal route to the hairless area behind 1 ear at least 4 hr before effect is required; reapply every 3 days as needed 1.00 patch - Active hydroxyzine HCl 25 mg tablet take 1 - 2 tablet by oral route every bedtime as needed 25 MG - Active frovatriptan 2.5 mg tablet take 1 tablet by oral route every day once with fluids as needed for menstrual migraine; if needed, may repeat after at least 2 hours 2.5 MG - Active Nexplanon 68 mg subdermal implant insert 1 by Intradermal route 1 - Active Procedures Procedure Date Ketorolac tromethamine inj, Per 15 Mg Fe THER/PROPH/DIAG INJ, SC/IM OFFICE/OUTPATIENT VISIT, EST OFFICE/OUTPATIENT VISIT, EST Ketorolac tromethamine inj, Per 15 Mg Ja THER/PROPH/DIAG INJ, SC/IM URINE TEST INSERT DRUG IMPLANT DEVICE Etonogestrel implant system URINE TEST OFFICE/OUTPATIENT VISIT, NEW CHYLMD TRACH DNA AMP PROBE N.GONORRHOEAE DNA AMP PROB MIRYAM, DNA, DIR PROBE ALVAREZ VAG, DNA, DIR PROBE TRICHOMONAS VAGIN, DIR PROBE HIV-1 AG W/HIV-1 & HIV-2 AB BLOOD SEROLOGY, QUALITATIVE Advance Directives Directive Yes / No Effective Date File Name No Information Encounters Encounter Description Practice Location Reason(s) For Visit Diagnoses Date Provider Providers Copied on Encounter [facility], [address], [place], [id number], [place] tel:[phone] [facility] No Information [facility] [address], [place], [id number], [place]. tel:[phone] [facility], [address], [place], [id number], [place] tel:[phone] [facility] Headache (chief complaint) Pain, unspecified 9 Di Rosario. [address], [place], [id number], [place]. tel:[phone] OFFICE/OUTPA TIENT VISIT, [facility], [address], [place], [id number], [place] tel:[phone] [facility] headache (chief complaint) HypersomniaMe nstrual migraine, intractable, without status migrainosus 9 Di Rosario. [address], [place], [id number], [place]. tel:[phone] OFFICE/OUTPA TIENT VISIT, [facility], [address], [place], [id number], [place] tel:[phone] [facility] headache (chief complaint) Body mass index (BMI) 25.0-25.9, adultMenstrua l migraine, intractable, without status migrainosusPa in, unspecified 3- 9 Di Rosario. [address], [id number], [place]. tel:[phone] [facility], [address] [place], [place], [id number], [place] tel:[phone] [facility] contraception (chief complaint) Encounter for initial prescription of implantable subdermal contraceptive Encounter for test, result negative Oct-3 0-201 8 Di Rosario. [address], [place], [id number], [place]. tel:[phone] OFFICE/OUTPA TIENT VISIT, [facility], [address] [facility] [address] [place], [place], [id number], [place] tel:[phone] [facility] STI (chief complaint)cont raception (chief complaint) Encounter for test, result negativeHigh risk heterosexual behaviorEncou nter for initial prescription of transdermal patch hormonal contraceptive device Oct-0 8- 8 Di Rosario. [address], [place], [id number], [place]. tel:[phone] Family History Family Member Type Diagnosis Age At Onset Family h/o Problem (finding) Migraines Payers Payer name Insurance type Covered libertarian ID perladanni padilla(s) Davidtna [id number] Social History Type Description Quantity Date Captured Comments Sex Female Smoking Status No Information Gender Identity Female Chief Complaint And Reason For Visit No Information Reason For Referral Reason For Referral No Information Plan Of Treatment Date Type Action Status Goal Dental exam. Due on 019 due Goal Influenza vaccine. Due on due Goal BMI Plan if not WNL. Due on due Goal Depression screening. Due on due Goal Wellness Physical Exam. Due on due Goal Tdap. Due on due Goal Pap/HPV testing. Due on due Goal Td vaccine. Due on due Goal Advanced Care Planning. Due on due Goal Reproductive Life Plan. Due on due Goal HIV screen due Goal BMI Plan if not WNL. Due on due Goal Depression screening. Due on due Goal Wellness Physical Exam. Due on due Goal Tdap. Due on due Goal Pap/HPV testing. Due on due Goal Td vaccine. Due on due Goal Dental exam. Due on due Goal Influenza vaccine. Due on due Goal Advanced Care Planning. Due on due Goal Reproductive Life Plan. Due on due Goal HIV screen due Goal BMI Plan if not WNL. Due on due Goal Depression screening. Due on due Goal Wellness Physical Exam. Due on due Goal Tdap. Due on due Goal Pap/HPV testing. Due on due Goal Td vaccine. Due on due Goal Dental exam. Due on 019 due Goal Influenza vaccine. Due on due Goal Advanced Care Planning. Due on due Goal Reproductive Life Plan. Due on due Goal HIV screen due Goal Lifestyle education regardin g diet completed Goal Wellness Physical Exam. Due on due Goal Tdap. Due on due Goal Td vaccine. Due on due Goal Dental exam. Due on due Goal Influenza vaccine. Due on due Goal Reproductive Life Plan. Due on due Goal HIV screen. Due on due Goal Wellness Physical Exam. Due on due Goal Tdap. Due on due Goal Pap/HPV testing. Due on due Goal Td vaccine. Due on due Goal Dental exam. Due on 018 due Goal Influenza vaccine. Due on due Goal Reproductive Life Plan. Due on due Goal HIV screen. Due on due Referral Referred To: Lance Barton M.D. [address], [phone] Ordered: Referrals: Pulmonology. Lance Barton M.D.. Evaluate and treat ordered History Of Present Illness Encounter Date Complaint History Of Prese nt Illness Headache Additional infor mation: Here for Toradol injection. headache The severity of the problem is moderate. The problem has not changed. The symptoms are recurring. Locations affected include right temporal. Headache timing includes menstrual cycle. Denies aggravating factors. Denies relieving factors. Pertinent negatives include vomiting. Additional information: She stopped nortriptyline at night because it gave her nightmares. Feels one coming on now. Has not tried frovatriptan yet. Still not sleeping well. Drives a lot during the day and takes a lot of cat naps. Staying asleep is difficult. Happens every night. headache (comments) Does not sno re. Has not tried anything OTC. Drinks some caffeine during the day. Has been like this her whole life. Drinking more water and exercising. Has been evaluated by neurologist, who told her it was stress and hormones (maybe 2009). headache The severity of the problem is moderate. The problem has worsened. The symptoms are recurring. Locations affected include bilateral temporal and bilateral ocular. Headache timing includes menstrual cycle. Symptoms are relieved by darkness. Associated symptoms include nausea. Pertinent negatives include vomiting. Additional information: Relates gets this every month around menses. Has had one period since Nexplanon, but headaches come routinely every month. 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 Used to take Imitrex, but they made her vomit. Naproxen helped, but would have to sleep all day. headache (comments) Used to get shots, but those knocked her out (unsure of med). States does not drink enough water or exercise regularly. Drinks one soda or coffee/day - maybe two. Goes to bed around 10 - 10:30 and gets up around 6. States is a light sleeper. Does not want to take a medication every day for prevention. contraception The symptoms are reported as being mild. The symptoms occur daily. She states the symptoms are acute and are of new onset. pt here for Nexplanon insertion. Used patch x about 2wks & dc'd d/t headaches. Neg home PT on 11/08/17. Last coitus within last week c condom. STI Identified Risk Factors include: lack of condom use, multiple partners and new partner . Pertinent negatives include abdominal pain, dyspareunia, dysuria, fatigue, fever, joint pain, joint swelling and nausea. Additional information: -She is back in a relationship with an old partner and would like testing done. Denies any symptoms. She had a pap done last April. contraception The symptoms are reported as being mild. The symptoms occur daily. She states the symptoms are chronic. Interested in Nexplanon. Last unprotected intercourse this week. Was using NuvaRing; quit in August. LMP was a couple days at beginning of September. Has hx irregular periods. Functional Status Date Functional Assessmen t No Information Instructions Date Instruction Additional Infor monica Try frovatriptan as needed with migraine. If not helping, let me know and we can always give you another shot. Related to Menstrual migraine, intractable, without status migrainosus Hydroxyzine has been prescribed for you to try at night for sleep. Schedule appointment with Pulmonology for evaluation for excessive sleepiness. Related to Hypersomnia Toradol 60 mg given today. Start nortriptyline every night, but if it is not strong enough to help you sleep, call so I can increase your dose. Frovatriptan has been prescribed for you to try if needed. Related to Menstrual migraine, intractable, without status migrainosus Lifestyle education regarding di et Related to Body mass index (BMI) 25.0-25.9, adult Giving encouragement to exercise Related to Body mass index (BMI) 25.0-25.9, adult You received a Nexpl anon today. Post-care instruction sheet given to patient. Follow-up right away if you have any signs of infection such as fever, redness, warmth, or pain. Make sure to use condoms with all types of sexually activity if you choose to be sexually active. Related to Encounter for initial prescription of implantable subdermal contraceptive The patch has been p rescribed for you today. You are going to check with your insurance company to see if the cover the Nexplanon. Repeat a test in 2 weeks. Related to Encounter for initial prescription of transdermal patch hormonal contraceptive device Call in one week if you would like your results. Otherwise, no news means negative testing results. Consider the use of condoms with all types of sexual activity to reduce your risk. Related to High risk heterosexual behavior Advanced Care Planning Assessments Type Assessment Date No Information Patient Care Teams Name Effective Dates (start - stop) Status Members No Information
--- OUTSIDE RECORDS SUMMARY | 2024-03-04 05:00 | XMS_ITS ---
Author Organization [facility] vices Address [address] [place], [place] [id number] Care Team Providers Care Vehicle And Equipment Cleaner Name Role Phone Henry Ruvalcaba Primary Care Provider [phone] REASON FOR VISIT Wellness Social History Sex Assigned At : Social History Observation Description Sex Assigned At Female Encounters Encounter Location Date Provider Diagnosis [place] [address] [place] [address] 03/04/2024 Henry Ruvalcaba Plan Of Treatment No Information Progress Notes * An PLEITEZDOB:1985 (39 yo F)Acc No.[id number]:03/04/2024 Progress Notes Patient: An QUINTERO Provider: DAVID Roman :1985 A ge:38 Y S ex:Female Date:03/04/2024 Address:[address] [place] [address] Subjective: * Chief Complaints: * 1 . Wellness. * Medical History: Objective: * Vitals: Assessment: Plan: * Treatment: Care Plan: * Problems: * Billing Information: * Visit Code: * Procedure Codes: * Electronic signature of Rufino Ruvalcaba NP on 01/10/2025 at 10:55 AM EDT Sign off status: Pending * Provider: DAVID Roman Date: 0 03/04/2024 Generated for Printi ng/Faxing/eTransmitting on: 0 01/10/2025 10:55 AM EDT
--- OUTSIDE RECORDS SUMMARY | 2024-04-01 07:30 | XMS_ITS ---
Author Organization [facility] in [place] Address [address] [place] [address] Care Team Providers Care Associate Buyer Name Role Phone None, Unknown or Primary Care Provider Unavailab Gilberto De La Cruz [phone] Allergies No Known Allergies REASON FOR VISIT left foot pain, [facility] ER follow up Social History Tobacco Use: Social History Observation Description Date Details (start date - stop date) Never Smoker NA - NA Tobacco Use/Smoking Question Answer Notes Patient is a nonsmoker Vital Signs Height 66 in 04/01/2024 Temperature 97.8 degrees Fahrenheit 04/01/20 24 Heart Rate 74 /min 04/01/2024 Oximetry 99 % 04/01/2024 Encounters Encounter Location Date Provider Diagnosis [facility] (PODIATRY) [address] [place] [address] [place] [address] 04/01/2024 Gilberto Almonte Left foot pain M79.672 and Stress fracture, left foot, subsequent encounter for fracture with routine healing M84.375D Assessments Encounter Date Diagnosis (ICD Code) Assessment Notes Treatment Notes Treatment Clinical Notes Section Notes 04/01/2024 Left foot pain (ICD-10 - M79.672) 04/01/2024 Stress fracture, left foot, subsequent encounter for fracture with routine healing (ICD-10 - M84.375D) Patient presents roughly 3 to 4 weeks following a visit to the emergency department for left foot pain. She is in the and has been having pain for several weeks. Her initial x-rays in the emergency department were negative for stress fracture however today's shows a healed second metatarsal stress fracture. 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 I have no restrictions for her. She may take OTC ibuprofen Tylenol if needed as well as RICE therapy. She will follow-up as needed Plan Of Treatment Treatment Notes Assessment Notes Stress fracture, left foot, subsequent encounter for fracture with routine healing Patient presents roughly 3 to 4 weeks following a visit to the emergency department for left foot pain. She is in the and has been having pain for several weeks. Her initial x-rays in the emergency department were negative for stress fracture however today's shows a healed second metatarsal stress fracture. 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 I have no restrictions for her. She may take OTC ibuprofen Tylenol if needed as well as RICE therapy. She will follow-up as needed Pending Test Test Name Order Date XR Foot LT (3 views) * 04/01/2024 Progress Notes * An WEBBDOB:1985 (38 yo F)Acc No.[id number]:04/01/2024 New Patient Patient: An QUINTERO Provider: Pam Almonte DPM, MS :1985 A ge:38 Y S ex:Female Date:04/01/2024 Address:[address] [place], [place] [id number] Pcp:Unknown or None Check In:11:27 AM ESTCheck O ut:12:14 PM EST Subjective: * Chief Complaints: * l eft foot pain, [facility] ER follow up * HPI: G eneral: Patient in office today for initial evaluation after being seen in [facility] ER on 03.12.24. States she was walking when she developed pain. No injury noted. States her pain is proxmial to her 2nd and 3rd toes on her left dorsal foot. 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 She is complaining of compensating pain that is located to her left lateral heel. She goes off to [employer] again this coming Martha. Reports she has had a left 5th met fracture in the past. * ROS: G eneral/Constitutional: Chills d enies. F ever d enies. W eight gain?denies. W eight loss d enies. S kin: Skin Ulcers d enies. S kin lesion(s) d enies. ? C ardiovascular: Difficulty breathing on exertion d enies. L eg cramps?denies. E jesus d enies. C hest pain d enies. R espiratory: Difficulty breathing d enies. D yspnea d enies.?Cough d enies. G astrointestinal: Diarrhea d enies. N ausea d enies. V omiting?denies. M usculoskeletal: Bone/Joint Symptoms d enies. C maddie Pain d enies.?Leg cramps d enies. N eurologic: Numbness d enies. T ingling d enies . G ait abnormality d enies. ? H ematology: Anemia D enies. E asy bruising d enies. ? A ll Other Systems: Review of Systems (ROS) S ee HPI for details,All others negative except those mentioned in HPI. 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 M other: alive. B brandyer(s): alive, Hodgkins Lymphpoma, diagnosed with Other malignant neoplasm of unspecified site. 2 brother(s) . 1 son(s) , 1 daughter(s) - healthy. . * Social History: T obacco Use: T obacco Use/Smoking P atient is a n onsmoker * Medications: D iscontinuedFluconazole 150 MG Tablet 1 tablet today and repeat in 3 days if still having symptoms Orally once MetroGel-Vaginal 0.75 % Gel 1 application at bedtime Vaginal Once a day Nexplanon , Notes to Pharmacist: Inserted at [facility] in 2018Nuvigil Medication List reviewed and reconciled with the patientDiscontinued Fluconazole 150 MG Tablet 1 tablet today and repeat in 3 days if still having symptoms Orally once Discontinued MetroGel-Vaginal 0.75 % Gel 1 application at bedtime Vaginal Once a day Discontinued Nexplanon , Notes to Pharmacist: Inserted at [facility] in 2018Discontinued Nuvigil Medication List reviewed and reconciled with the patient * Allergies: N .K.D.A.no[Allergies Verified] Objective: * Vitals: H t: 66 in, Temp:97.8F, HR:74/min, Pain scale:31-10, Oxygen sat %:99%, Ht-cm: 167.64 cm. * Examination: P odiatry Examination: SKIN: s kin intact, n o sign of infection. MUSCULOSKELETAL: N o pain to palpation, N o gross deformity, S trength equal & symmetric. NEUROLOGICAL: l ight touch sensation intact, n egative tinel's sign. VASCULAR: P edal pulses palpable, C apillary refill is brisk to toe, D igital hair intact. X -rays: x-rays were obtained & reviewed in my office. There is evidence of a healed stress fracture of the second metatarsal shaft. No significant malalignment but callus formation noted. Assessment: * Assessment: 1. S tress fracture, left foot, subsequent encounter for fracture with routine healing - M84.375D (Primary) 2 . L eft foot pain - M79.672 Plan: * Treatment: 2. L eft foot pain I maging: XR Foot LT (3 views) * * Procedure Codes: * * Sign off status: Completed Visit Status: C HK (Check Out) true * Provider: Pam Almonte DPM, MS Date: 0 04/01/2024 Generated for Derik rojas/Bert/Nicoitting on: 0 01/10/2025 07:11 PM EDT History and Physical Notes * Examination Category Sub-Category Detail Notes Category Not es Podiatry Examination SKIN: skin intact, no sign of infection X-rays: x-rays were obtained & reviewed in my office. There is evidence of a healed stress fracture of the second metatarsal shaft. No significant malalignment but callus formation noted. MUSCULOSKELETAL: No pain to palpation , No gross deformity, Strength equal & symmetric NEUROLOGICAL: light touch sensatio n intact, negative tinel's sign VASCULAR: Pedal pulses palpabl e, Capillary refill is brisk to toe, Digital hair intact
--- OUTSIDE RECORDS SUMMARY | 2025-01-10 19:11 | XMS_ITS | Patient Health Record ---
Author Organization [facility] in [place] Address [address] [place] [address] Care Team Providers Care Fountain Manager Name Role Phone None, Unknown or Primary Care Provider Unavailab Luis De La Cruz Unavailable [phone] Allergies No Known Allergies Results Component Value Reference Range Notes XR foot LT min 3V (Not yet r eviewed by provider) Interpretation: Performing Lab: Notes/Report: Source Facility: [place] [address] XRay Report Signed Patient: VERA WEBB MR#: [id number] : 1985 Acct:[id number] Age/Sex: 38 / F ADM Date: 04/01/24 Loc: EC Attending Dr: Luis Almonte D.P.M. Ordering Physician: Luis Almonte D.P.M. Date of Service: 04/01/24 Procedure(s): XR foot LT min 3V Accession Number(s): [id number] cc: Luis Almonte D.P.M.; Henry Mancilla NP [place] [address] Patient Name: VERA WEBB MRN: [id number] date: 1985 Sex: F Assigned Patient Location: EC Current Patient Location: Accession/Order Number: [id number] Exam Date: 04/01/2024 11:50 Report Date: 04/04/2024 14:30 At the request of: LUIS ALMONTE Procedure: XR foot LT min 3V PROCEDURE: XR foot LT min 3V COMPARISON: 03/12/2024 HISTORY: LEFT FOOT PAIN FINDINGS: BONES:No acute fracture or dislocation. Remote healed fracture fifth metatarsal with 5 mm of offset SOFT TISSUES:Negative. No visible soft tissue swelling. EFFUSION:None visible. OTHER: Negative. XR/XR foot LT min 3V IMPRESSION: No acute radiographic abnormality Electronically authenticated by: EARNESTINE MACDONALD Date: 04/04/2024 14:30 Dictated By: Earnestine Macdonald M.D. Signed By: 04/04/24 143 DD/ 143 TD/TT: Hat Mender: [place] [address] XRay Report Signed Patient: SARAI WEBB MR#: [id number] : 1985 Acct:[id number] Age/Sex: 38 / F ADM Date: 04/01/24 Loc: EC Attending Dr: Luis Almonte D.P.M. Ordering Physician: Luis Almonte D.P.M. Date of Service: 04/01/24 Procedure(s): XR foot LT min 3V Accession Number(s): [id number] cc: Luis Almonte D.P.M.; Henry Mancilla NP [place] [id number] Patient Name: VERA WEBB MRN: [id number] date: 1985 Sex: F Assigned Patient Location: Current Patient Location: Accession/Order Numb er: [id number] Exam Date: 04/01/2024 11:50 Report Date: 04/04/2024 14:30 At the request of: LUIS ALMONTE Procedure: XR foot LT min 3V PROCEDURE: XR foot LT min 3V COMPARISON: 03/12/2024 HISTORY: LEFT FOOT PAIN FINDINGS: BONES:No acute fract ure or dislocation. Remote healed fracture fifth metatarsal with 5 mm of offset SOFT TISSUES:Negativ e. No visible soft tissue swelling. EFFUSION:None visible. OTHER: Negative. X R/XR foot LT min 3V IMPRESSION: No acute radiographi c abnormality Electronically authe nticated by: EARNESTINE MACDONALD Date: 04/04/2024 14:30 Dictated By: Earnestine Macdonald M.D. Signed By: 04/04/241431 DD/ 29 TD/TT: Hat Mender: Reason For Referral No Information Social History Tobacco Use: Social History Observation Description Date Details (start date - stop date) Never Smoker NA - NA Tobacco Use/Smoking Question Answer Notes Patient is a nonsmoker Alcohol Screen (Audit-C) Question Answer Notes Did you have a drink contain ing alcohol in the past year? Yes How often did you have a dri nk containing alcohol in the past year? Monthly or less (1 point) How many drinks did you have on a typical day when you were drinking in the past year? 1 or 2 drinks (0 point) Points 1 Interpretation Negative Sexual History Question Answer Notes Had sex in the past 12 months (vaginal, oral, or anal)? Yes with Men only Use protection? No Last menstrual period 02/09/2017 Problems Problem Type SNOMED Code ICD Code Onset Dates Problem Status W/U Status Risk Notes Problem Iron deficiency anemia (66858869) Other iron deficiency anemia (D50.8) Active confirmed Problem 24617365 Menstrual migraine without status migrainosus, not intractable (G43.829) Active confirmed Problem Abnormal uterine bleeding (53212232341392 ) Abnormal uterine bleeding (N93.9) Active confirmed Problem 99840887 Iron deficiency anemia, unspecified iron deficiency anemia type (D50.9) Active confirmed Vital Signs Heart Rate 74 /min 04/01/2024 Temperature 97.8 degrees Fahrenheit 04/01/2024 Oximetry 99 % 04/01/2024 Height 66 in 04/01/2024 Encounters Encounter Location Date Provider Diagnosis [facility] (POD[facility]) [address] [place] [address] [place] [address] 04/01/2024 Luis Almonte Left foot pain M79.672 and Stress fracture, left foot, subsequent encounter for fracture with routine healing M84.375D Assessments Encounter Date Diagnosis (ICD Code) Assessment Notes Treatment Notes Treatment Clinical Notes Section Notes 04/01/2024 Stress fracture, left foot, subsequent encounter [...] getting ready for a short deployment to [employer] and overall is feeling improved and just wanted peace of mind to ensure this would not limit her activity at all. I have no restrictions for her. She may take OTC ibuprofen Tylenol if needed as well as RICE therapy. She will follow-up as needed 04/01/2024 Left foot pain (ICD-10 - M79.672) Plan Of Treatment Pending Test Test Name Order Date XR Foot LT (3 views) * 04/01/2024 XR foot LT min 3V 04/04/2024 Insurance Providers Payer Name Payer Address Payer Phone Subscriber Number Group Number Insured Name Patient Relationship to Insured Coverage Start Date Coverage End Date [address] [place], [place] [id number] Vera Webb Self - patient is the insured Medical (General) History Surgical History Surgery Date(Month/Year) x's 2
--- OUTSIDE RECORDS SUMMARY | 2025-01-10 19:11 | XMS_ITS | Patient Health Record ---
Author Organization [facility] Address [address] [place], [place] [id number] Care Team Providers Care Vice President Corporate Communications Name Role Phone Henry Ruvalcaba Primary Care Provider Allergies No Known Allergies Results Component Value Reference Range Notes XR foot LT min 3V Reviewed date:04/05/2024 07:27:07 AM Interpretation: Performing Lab: Notes/Report: Source Facility: [place] [address] XRay Report Signed Patient: VERA PLEITEZ MR#: [id number] : 1985 Acct:[id number] Age/Sex: 38 / F ADM Date: 04/01/24 Loc: EC Attending Dr: Luis Almonte D.P.M. Ordering Physician: Luis Almonte D.P.M. Date of Service: 04/01/24 Procedure(s): XR foot LT min 3V Accession Number(s): [id number] cc: Luis Almonte D.P.M.; Henry Mancilla NP [place] [phone] Patient Name: VERA PLEITEZ MRN: [id number] date: 1985 Sex: F Assigned Patient Location: EC Current Patient Location: Accession/Order Number: [id number] Exam Date: 04/01/2024 11:50 Report Date: 04/04/2024 [...] Macdonald M.D. Signed By: 04/04/24 143 DD/ 29 TD/TT: Mechanical Maintenance Foreman: Reason For Referral No Information Medications Medication SIG (Take, Route, Fr equency, Duration) Notes Start Date End Date Status Nexplanon 68 MG as directed Subcutaneous Active Social History Tobacco Use: Social History Observation Description Date Details (start date - stop date) Never Smoker NA - NA Sex Assigned At : Social History Observation Description Sex Assigned At Female Household Question Answer Notes Marital status: single Number of adults in household: 2 Number of children in household: 1 Tobacco Use/Smoking Question Answer Notes Tobacco use: nonsmoker patient enter ed data CAGE-AID Questionnaire (2018 Edition) Question Answer Notes Have you ever felt that you ought to cut down on your drinking or drug use? No patient entered data Have people annoyed you by c riticizing your drinking or drug use? No patient entered data Have you ever felt bad or gu ilty about your drinking or drug use? No patient entered data Have you ever had a drink or used drugs first thing in the morning to steady your nerves or to get rid of a hangover? No patient entered data CAGE-AID Score 0 Interpretation Negative PRAPARE Question Answer Notes Date Completed/Updated: 10/16/2023 yukie nt entered data What is your current housing situation? I have housing patient entered data Are you worried about losing your housing? No patient entered data What is the highest level of school that you have finished? 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 Check all that apply I do not have problems meeting my needs Has lack of transportation k ept you from medical appointments, meetings, work or from getting things needed for daily living? No How often do you see or talk to people that you care about and feel close to? (For example: talking to friends on the phone, visiting friends or family, going to tenriism or club meetings) 3 to 5 times a week patient entered data How stressed are you? Stress is when someone feels tense, nervous, anxious, or can't sleep at night because their mind is troubled Not at all patient entered data In the past year have you sp ent more than 2 nights in a row in a long-term, detention, usp center, or juvenile correctional facility? No patient entered abdullahi a Are you a refugee? No patient en tered data What country are you from? [place] wilfred agarwal entered data Do you feel physically and emotionally safe where you currently live? Yes patient entered data In the past year, have you b een afraid of your partner or ex-partner? 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
--- OUTSIDE RECORDS SUMMARY | 2025-01-10 19:12 | XMS_ITS | CCD ---
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 Name Role Phone AKIKO POP Unavailable Unavailable MOOSA, THERESE F Unavailable Unavailable FINTELNISHI S Unavailable Unavailable MOOSA, THERESE F Unavailable Unavailable AKIKO POP Unavailable Unavailable MOOSA, THERESE F Unavailable Unavailable NO FAMILY, PHYSICIAN Primary Care Provider VANCE Grijalva Emergency Provider [phone] MISC, DR GILMORE Consulting Unavailable MISC, DR GILMORE Attending Unavailable MISC, DR GILMORE Admitting Unavailable MISC, DR GILMORE Consulting Unavailable MISC, DR GILMORE Attending Unavailable MISC, DR GILMORE Admitting Unavailable OLEXA, BRIDGER Admitting Unavailable OLEXA, BRIDGER Attending Unavailable ZIEBER, DR JENNIFER Gimenez Consulting Unavailable OLEXA, BRIDGER Consulting Unavailable MISC, DR GILMORE Primary Care Unavailable COMER, DR EARNESTINE Johnson Consulting Unavailable LEANNA, DR KILLIAN Admitting Unavailable LEANNA, DR KLILIAN Attending Unavailable LEANNA, DR KILLIAN Consulting Unavailable LEANNA, DR KILLIAN Admitting Unavailable LEANNA, DR KILLIAN Consulting Unavailable LEANNA, DR KILLIAN Attending Unavailable Olexa, Bridger Unavailable Shannan Kee Unavailable STAS Echols Attending Provider NO FAMILY, PHYSICIAN Primary Care Unavailable Jessica Echols Attending Unavailable Jessica Echols Admitting Unavailable Hailee Guillaume Attending Unavailable CLARITA MARTEL Attending Unavailable MARIA D RAM Attending Unavailable Clarita Logan Unavailable Unavailable Primary Care Provider Unavailrivka e Medications Current Medications Medication Drug Class(es) Dates Sig (Normalized) Sig (Original) azithromycin 1000 mg oral tablet (1 source) Macrolide Antimicrobial Start: 03-15-2024 take 1000 mg by mouth once daily Azithromycin Active 1000 MG PO Daily 2 March 15, 2024 12:00am doxycycline hyclate 100 mg oral capsule (5 sources) Tetracycline-class Drug Start: 03-15-2024 End: 01-10-2025 doxycycline (Vibramycin) 100 MG capsule Twice daily 03/15/2024 01/10/2025 Discontinued (Other) etonogestrel 68 mg drug implant (7 sources) Progestin Start: 05-23-2024 End: 05-23-2027 etonogestrel-elutin g 68 mg contraceptive implant 1 each End: 05-23-2024 etonogestrel-eluting 68 mg c ontraceptive implant 1 each by Implant route 1 (one) time 05/23/2024 Discontinued (Therapy completed) Nexplanon 68 MG as directed Subcutaneous Active ibuprofen 100 mg chewable tablet (6 sources) Nonsteroidal Anti-inflammatory Drug Start: 03-15-2024 End: 01-10-2025 ibuprofen (Ibuprofen 100 José Strength) 100 MG chewable tablet Every 12 hours 03/15/2024 01/10/2025 Discontinued (Other) Start: 03-15-2024 take 800 mg by mouth every twelve hours Ibuprofen Active 800 MG PO Every 12 hours March 15, 2024 12:00am metroNIDAZOLE 500 mg oral tablet (1 source) Nitroimidazole Antimicrobial Start: 03-15-2024 take 500 mg by mouth twice daily Metronidazole Active 500 MG PO Twice daily 14 March 15, 2024 12:00am naproxen 500 mg oral tablet (4 sources) Nonsteroidal Anti-inflammatory Drug Start: 07-17-2023 take 1 tablet by mouth every twelve hours at mealtime as needed naproxen (Naprosyn) 500 MG tablet TAKE 1 TABLET BY MOUTH EVERY 12 HOURS WITH FOOD OR MILK NEEDED 07/17/2023 Active ondansetron 4 mg oral tablet (1 source) Serotonin-3 Receptor Antagonist Start: 08-05-2021 take 1 tablet by mouth every eight hours as needed Zofran ODT 4 MG 1 tablet on the tongue and allow to dissolve Orally every 8 hrs as needed for 4 days Jul, Active sodium fluoride 0.011 mg/mg toothpaste (4 sources) Start: 03-01-2024 Sodium Fluoride 5000 PPM 1.1 % paste USE PEA SIZED AMOUT. BRUSH FOR 2 MINUTES AT BEDTIME. DO NOT EAT/DRINK/RINSE X 30 MINUTES 03/01/2024 Active valACYclovir 1000 mg oral tablet (5 sources) Herpesvirus Nucleoside Analog DNA Polymerase Inhibitor, Herpes Simplex Virus Nucleoside Analog DNA Polymerase Inhibitor, Herpes Zoster Virus Nucleoside Analog DNA Polymerase Inhibitor Start: 03-15-2024 End: 01-10-2025 valACYclovir (Valtrex) 1 g tablet Twice daily 03/15/2024 01/10/2025 Discontinued (Other) Start: 03-15-2024 take 1000 mg by mout h twice daily Valacyclovir Active 1000 MG PO Twice daily 12 06March 15, 2024 12:00am Problems Active Problems Problem Classification Problem Date Documented Date Episodic/Chronic Administrative/social admission (4 sources) Encounter for examination for recruitment to armed [employer]; Translations: [ENC EXAM RECRUITMENT [employer] Onset: 10-05-2021 Episodic Contraceptive and procreative management (3 sources) Subcutaneous contraceptive implant present; Translations: [Encounter for surveillance of implantable subdermal contraceptive] 05-23-2024 Episodic Immunizations and screening for infectious disease [...] noninflammatory disorders of vagina] Onset: 03-16-2024 Episodic Other screening for suspected conditions (not mental disorders or infectious disease) (6 sources) Encounter for screening for malignant neoplasm of cervix; Translations: [Patient encounter status] Onset: 11-13-2020 Episodic Urinary tract infections (4 sources) Urinary [...] RIGHT KNEE] Onset: 06-20-2021 Resolved: 06-20-2021 Episodic Results Test Name Value Interpretation Reference Range Facility HCG ( test) Ql (U)o n 05-23-2024 Interpretation and review of laboratory results Normal [facility] P[facility] Test, Ur [facility] Insertion/Removal of Contrac eptive Capsuleon 05-23-2024 Sophy Armando LPN 05/23/2024 2:52 PM Insertion/Removal of Contraceptive Capsule Date/Time: 05/23/2024 1:00 PM Performed by: Maria D Ram DO Authorized by: Maria D Ram DO Consent: Consent obtained: Written Consent given by: Patient Patient questions answered: yes Patient agrees, verbalizes understanding, and wants to proceed: yes Educational handouts given: yes Instructions and paperwork completed: yes Indication: Indication: Presence of non-biodegradable drug delivery implant Pre-procedure: Pre-procedure timeout performed: yes Prepped with: alcohol 70% Local anesthetic: Lidocaine without epinephrine The site was cleaned and prepped in a sterile fashion: yes Procedure: Procedure: Removal with reinsertion Small stab incision was made in arm: yes Left/right: Left Preloaded contraceptive capsule trocar was placed subdermally: yes Visualization of implant was obtained: yes Contraceptive capsule was inserted and trocar removed: yes Visualization of notch in stylet and palpation of device: yes Palpation confirms placement by provider and patient: yes Site was closed with steri-strips and pressure bandage applied: yes [facility] HSV Culture and Typingon HSV Culture and Typing Comment Normal . [facility] Comment on above: Result Comment: Nega tive No Herpes simplex virus isolated. Performed at: [address] [id number] [employer] Member: Golden Hernandez PhD, Phone: [phone] PERFORMED BY: [address] [place] [address] PATHOLOGIST HVAC INSTRUCTOR MENDEZ COOL M.D. Performed By: #### V AGINITIS+, HSV CULTwTYPING, HERPES 1,2 #### [facility] , Herpes Simplex 1 and 2, NAAo n 03-16-2024 HSV 1 TENA Positive Critically abnormal Negative [facility] Comment on above: Result Comment: This test was developed and its performance characteristics determined by [facility]. It has not been cleared or approved by the Food and Drug Administration. Performed By: #### V AGINITIS+, HSV CULTwTYPING, HERPES 1,2 #### [facility] , HSV 2 TENA Negative Normal Negative [facility] Comment on above: Result Comment: This test was developed and its performance characteristics determined by [facility]. It has not been cleared or approved by the Food and Drug Administration. Performed at: [address] [id number] [employer] Member: Polina Aaron MD, Phone: [phone] Performed By: #### V AGINITIS+, HSV CULTwTYPING, HERPES 1,2 #### [facility] , Vaginitis Plus (VG+)on 03-16 Atopobium Vaginae High - 2 Critically abnormal . [facility] Comment on above: Result Comment: This test was developed and its performance characteristics determined by [facility]. It has not been cleared or approved by the Food and Drug Administration. Performed By: #### V AGINITIS+, HSV CULTwTYPING, HERPES 1,2 #### [facility] , BVAB2 Moderate - 1 Normal . [facility] Comment on above: Result Comment: This test was developed and its performance characteristics determined by [facility]. It has not been cleared or approved by the Food and Drug Administration. Performed By: #### V AGINITIS+, HSV CULTwTYPING, HERPES 1,2 #### [facility] , Rox Albicans, TENA Negative Normal Negative [facility] Comment on above: Result Comment: This test was developed and its performance characteristics determined by [facility]. It has not been cleared or approved by the Food and Drug Administration. Performed By: #### V AGINITIS+, HSV CULTwTYPING, HERPES 1,2 #### [facility] , Rox Glabrata, TENA Negative Normal Negative [facility] Comment on above: Result Comment: This test was developed and its performance characteristics determined by [facility]. It has not been cleared or approved by the Food and Drug Administration. Performed By: #### V AGINITIS+, HSV CULTwTYPING, HERPES 1,2 #### [facility] , Chlamydia Trachomotis, TENA Negative Normal Negative [facility] Comment on above: Performed By: #### V AGINITIS+, HSV CULTwTYPING, HERPES 1,2 #### [facility] , Megasphaera Low - 0 Normal . [facility] Comment on above: Result Comment: [...] Neisseria Gonorrhoeae, TENA Negative Normal Negative [facility] Comment on above: Result Comment: Perf ormed at: [facility] [address] [address] [place], [place] [id number] [employer] Member: Polina Aaron MD, Phone: [phone] Performed By: #### V AGINITIS+, HSV CULTwTYPING, HERPES 1,2 #### [facility] , Tric Vag TENA Negative Normal Negative [facility] Comment on above: Performed By: #### V AGINITIS+, HSV CULTwTYPING, HERPES 1,2 #### [facility] , UA RANDOMon 10-17-2021 Bilirubin Ql (U) Negative Normal NEGATIVE [facility] Comment on above: Performed By: #### U A #### [facility] [address] [place] [address] Dr. Luis Enrique Espino Clarity (U) CLEAR Normal CLEAR [facility] Comment on above: Performed By: #### U A #### [facility] [address] [place] [address] Dr. Luis Enrique Espino Color (U) YELLOW Normal YELLOW [facility] Comment on above: Performed By: #### U A #### [facility] [address] [address] [address] Luis Enrique Espino Glucose Ql (U) Negative Normal NEGATIVE [facility] Comment on above: Performed By: #### U A #### [facility] [address] [address] [address] Luis Enrique Espino Hemoglobin Ql (U) Negative Normal NEGATIVE [facility] Comment on above: Performed By: #### U A #### [facility] [address] [address] [address] Luis Enrique Espino Ketones Ql (U) Negative Normal NEGATIVE [facility] Comment on above: Performed By: #### U A #### [facility] [address] [place] [address] Dr. Luis Enrique Espino LEUKOCYTES Negative Normal NEGATIVE [facility] Comment on above: Performed By: #### U A #### [facility] [address] [address] [address] Luis Enrique Espino Nitrite Ql (U) Negative Normal NEGATIVE [facility] Comment on above: Performed By: #### U A #### [facility] [address] [place] [address] Dr. Luis Enrique Espino pH (U) 7.5 [pH] Normal 5-9 [facility] Comment on above: Performed By: #### U A #### [facility] [address] [place] [address] Dr. Luis Enrique Espino SPEC GRAVITY 1.020 Normal 1.005-<=1.025 [facility] Comment on above: Performed By: #### U A #### [facility] [address] [place] [address] Dr. Luis Enrique Espino UA PROTEIN Negative Normal NEGATIVE/ TRACE [facility] Comment on above: Performed By: #### U A #### [facility] [address] [place] [address] Dr. Luis Enrique Espino Urobilinogen Qn (U) 1.0 {Aura'U}/dL Normal 0.2 - 1.0 [facility] Comment on above: Performed By: #### U A #### [facility] [address] [place] [address] Dr. Luis Enrique Espino DRUG SCREEN RAPID (URINE)on 10-05-2021 AMP Negative Normal NEGATIVE [facility] Comment on above: Performed By: #### D RUGRPD #### [facility] [address] [place] [address] Dr. Luis Enrique Espino BAR Negative Normal NEGATIVE [facility] Comment on above: Performed By: #### D RUGRPD #### [facility] [address] [place] [address] Dr. Luis Enrique Espino BUP Negative Normal NEGATIVE [facility] Comment on above: Performed By: #### D RUGRPD #### [facility] [address] [place] [address] Dr. Luis Enrique Espino BZO Positive Abnormal NEGATIVE [facility] Comment on above: Performed By: #### D RUGRPD #### [facility] [address] [place] [address] Dr. Luis Enrique Espino MADONNA Negative Normal NEGATIVE [facility] Comment on above: Performed By: #### D RUGRPD #### [facility] [address] [place] [address] Dr. Luis Ernique Espino CUT-OFFS SEE BELOW Normal [facility] Comment on above: Result Comment: AMP [...] ng/mL Performed By: #### D RUGRPD #### [facility] [address] [place] [address] Dr. Luis Enrique Espino DRUG CUT HEADER DRUG CLASS TEST SYSTEM CUT-OFF CONCENTRATIONS ARE FOLLOWS: Normal [facility] Comment on above: Performed By: #### D RUGRPD #### [facility] [address] [place] [address] Dr. Luis Enrique Espino mAMP Negative Normal NEGATIVE [facility] Comment on above: Performed By: #### D RUGRPD #### [facility] [address] [place] [address] Dr. Luis Enrique Espino MTD Negative Normal NEGATIVE [facility] Comment on above: Performed By: #### D RUGRPD #### [facility] [address] [place] [address] Dr. Luis Enrique Espino OPI Negative Normal NEGATIVE [facility] Comment on above: Performed By: #### D RUGRPD #### [facility] [address] [place] [address] Dr. Luis Enrique Espino OXY Negative Normal NEGATIVE [facility] Comment on above: Performed By: #### D RUGRPD #### [facility] [address] [place] [address] Dr. Luis Enrique Espino PCP Negative Normal NEGATIVE [facility] Comment on above: Performed By: #### D RUGRPD #### [facility] [address] [address] [address] Luis Enrique Espino PPX Negative Normal NEGATIVE [facility] Comment on above: Performed By: #### D RUGRPD #### [facility] [address] [address] [address] Luis Enrique Espino TCA Negative Normal NEGATIVE [facility] Comment on above: Performed By: #### D RUGRPD #### [facility] [address] [address] [address] Luis Enrique Espino THC Negative Normal NEGATIVE [facility] Comment on above: Performed By: #### D RUGRPD #### [facility] [address] [address] [address] Luis Enrique Espino COVID Quick Testingon 2020 Result Negative [employer] Other Quick Fluon 08-05-2021 FLUAV Ab CF (S) [Titer] Negative [employer] Other FLUBV Ab CF (S) [Titer] Negative [employer] [facility] [employer] Other MG MAMM DIAGNOSTIC 3D DIPTI CA Don 05-14-2021 MG MAMM DIAGNOSTIC 3D DIPTI CAD Patient: AN PLEITEZ Exam Date: 05/14/2021 : 1985 Gender:F Ordering : DR MARIA D RAM . Admission #: [id number] Family : Order #: [id number] CLICK HERE TO VIEW EXAM RADIOLOGY REPORT [...] lymphoma cancer at age 17. LOCATION: [facility] BREAST COMPOSITION: Heterogeneously dense,which may obscure small masses. FINDINGS: DIAGNOSTIC CATEGORY 2--BENIGN FINDING: The breasts are medium in size with dense fibroglandular tissue limiting diagnostic sensitivity. RIGHT BREAST: No significant suspicious finding. Benign calcification upper outer quadrant LEFT BREAST: No significant suspicious finding. Hugo marker indicates a palpable mass lower outer [...] Blanton MD on 05/14/2021 at 09:33 Normal [facility] US BREAST LEFT LIMITEDon US BREAST LEFT LIMITED Patient: AN PLEITEZ Exam Date: 05/14/2021 : 1985 Gender:F Ordering : DR MARIA D RAM . Admission #: [id number] Family : Order #: [id number] CLICK HERE TO VIEW EXAM RADIOLOGY REPORT [...] lymphoma cancer at age 17. LOCATION: [facility] BREAST COMPOSITION: Heterogeneously dense,which may obscure small masses. FINDINGS: DIAGNOSTIC CATEGORY 2--BENIGN FINDING: The breasts are medium in size with dense fibroglandular tissue limiting diagnostic sensitivity. RIGHT BREAST: No significant suspicious finding. Benign calcification upper outer quadrant LEFT BREAST: No significant suspicious finding. Hugo marker indicates a palpable mass lower outer [...] Blanton MD on 05/14/2021 at 09:33 Normal [facility] PAP ACOG PANEL 2: 30 to 65on 2020 . . Normal [facility] Comment on above: Result Comment: Perf ormed at: [facility] Performed By: #### [id number] #### [facility] [address] [place] [address] Dolores Tricia Age Gdln ACOG Testing 30-65 Normal [facility] Comment on above: Performed By: #### [id number] #### [facility] [address] [place] [address] Dolores Breweren DIAGNOSIS: Comment Normal [facility] Comment on above: Result Comment: NEGA TIVE FOR INTRAEPITHELIAL LESION OR MALIGNANCY. Performed at: WB Performed By: #### [id number] #### [facility] [address] [place] [address] Dolores Clarke HPV Aptima Negative Normal Negative [facility] Comment on above: Result Comment: This nucleic acid amplification test detects fourteen high-risk HPV types (16,18,31,33,35,39,45,51,52,56,58,59,66,68) without differentiation. Performed at: =G Performed By: #### [id number] #### [facility] [address] [place] [address] Dolores Clarke Methodology: Comment [facility] Comment on above: Result Comment: This liquid based ThinPrep(R) pap test was screened with the use of an image guided system. Performed at: WB Performed By: #### [id number] #### [facility] [address] [place] [address] Dolores Clarke Note: Comment Normal [facility] Comment on above: Result Comment: The Pap smear is a screening test designed to aid in the detection of premalignant and malignant conditions of the uterine cervix. It is not a diagnostic procedure and should not be used as the sole means of detecting cervical cancer. Both false-positive and false-negative reports do occur. . Performed at: WB Performed By: #### [id number] #### [facility] [address] [place] [address] Dolores Clarke Performed by: Comment Normal [facility] Comment on above: Result Comment: Renzo Gann, Auto Washer (ASCP) Performed at: WB Performed By: #### [id number] #### [facility] [address] [place], [place] [address] Dolores Clarke Specimen adequacy: Comment Normal [facility] [place] [facility] Comment on above: Result Comment: Sati sfactory for evaluation. Endocervical and/or squamous metaplastic cells (endocervical component) are present. Performed at: WB Performed By: #### [id number] #### [facility] [address] [place], [place] [address] Dolores Clarke HCG, Quanton 06-15-2017 HCG, Quant 9820 IU/L High <5 [facility] Comment on above: Result Comment: Non- preg premeno <=5Postmeno <=8Male <=3If HCG results do not concur with clinical observations, additional testing to confirm result is recommended. This test is not labeled for use as a tumor marker.[facility] [address] [place] [address] Performed By: #### B HCG ####[address] [address] HCG, Quanton 06-04-2017 HCG, Quant 166 IU/L High <5 [facility] Comment on above: Result Comment: Non- preg premeno <=5Postmeno <=8Male <=3If HCG results do not concur with clinical observations, additional testing to confirm result is recommended. This test is not labeled for use as a tumor marker.Performed at [facility] [address] [place], [place] [id number] [phone] Performed By: #### B HCG ####[facility] [place] [address] CBC with Diffon 06-03-2017 Abs. Basophil 0.00 k/uL Normal 0.0-0.2 [facility] Comment on above: Performed By: #### C DP, PROL, BHCG, FT4, INSU, LH, PROG, TSH, GLU ####[address] [address] Abs.Neutrophil (Seg) 3.40 k/uL Normal 1.8-7.7 [facility] Comment on above: Performed By: #### C DP, PROL, BHCG, FT4, INSU, LH, PROG, TSH, GLU ####[address] [address] Basophils/100 WBC Auto (Bld) 1 % Normal [facility] Comment on above: Performed By: #### C DP, PROL, BHCG, FT4, INSU, LH, PROG, TSH, GLU ####[address] [address] Eosinophils 0.10 10*3/uL Normal 0.0-0.4 [facility] Comment on above: Performed By: #### C DP, PROL, BHCG, FT4, INSU, LH, PROG, TSH, GLU ####[address] [address] Eosinophils/100 leukocytes 2 % Normal [facility] Comment on above: Performed By: #### C DP, PROL, BHCG, FT4, INSU, LH, PROG, TSH, GLU ####[address] [address] Erythrocyte distribution width Auto Ratio (RBC) 18.5 % High 12.5-15.4 [facility] Comment on above: Performed By: #### C DP, PROL, BHCG, FT4, INSU, LH, PROG, TSH, GLU ####[address] [address] Erythrocyte morphology ANISOCYTOSIS PRESENT Normal [facility] Comment on above: Result Comment: MICR OCYTOSIS PRESENT[address] [address] Performed By: #### C DP, PROL, BHCG, FT4, INSU, LH, PROG, TSH, GLU ####[place] [address] Erythrocytes (RBC) 4.05 10*6/uL Normal 4.0-5.2 [facility] Comment on above: Performed By: #### C DP, PROL, BHCG, FT4, INSU, LH, PROG, TSH, GLU ####[place] [address] Hematocrit (HCT) 29.6 % Low 36-[address] [facility] Comment on above: Performed By: #### C DP, PROL, BHCG, FT4, INSU, LH, PROG, TSH, GLU ####[place] [address] Hemoglobin mass conc (Bld) 9.6 g/dL Low 12.0-16.0 [facility] Comment on above: Performed By: #### C DP, PROL, BHCG, FT4, INSU, LH, PROG, TSH, GLU ####[place] [address] Lymphocytes 1.40 10*3/uL Normal 1.0-4.8 [facility] Comment on above: Performed By: #### C DP, PROL, BHCG, FT4, INSU, LH, PROG, TSH, GLU ####[place] [address] Lymphocytes/100 leukocytes 27 % Normal [facility] Comment on above: Performed By: #### C DP, PROL, BHCG, FT4, INSU, LH, PROG, TSH, GLU ####[place] [address] MCH 23.7 pg Low 26-34 [facility] Comment on above: Performed By: #### C DP, PROL, BHCG, FT4, INSU, LH, PROG, TSH, GLU ####[place] [address] MCHC mass conc (RBC) 32.4 g/dL Normal 31-37 [facility] Comment on above: Performed By: #### C DP, PROL, BHCG, FT4, INSU, LH, PROG, TSH, GLU ####[place] [address] MCV 73.1 fL Low 80-100 [facility] Comment on above: Performed By: #### C DP, PROL, BHCG, FT4, INSU, LH, PROG, TSH, GLU ####[place] [address] Monocytes 0.30 10*3/uL Normal 0.1-1.2 [facility] Comment on above: Performed By: #### C DP, PROL, BHCG, FT4, INSU, LH, PROG, TSH, GLU ####[place] [address] Monocytes/100 leukocytes 6 % Normal [facility] Comment on above: Performed By: #### C DP, PROL, BHCG, FT4, INSU, LH, PROG, TSH, GLU ####[address] [address] Neutrophil (Seg) 64 % Normal [facility] Comment on above: Performed By: #### C DP, PROL, BHCG, FT4, INSU, LH, PROG, TSH, GLU ####[place] [address] Platelet mean volume (PMV) 7.8 fL Normal 6.0-12.0 [facility] Comment on above: Performed By: #### C DP, PROL, BHCG, FT4, INSU, LH, PROG, TSH, GLU ####[address] [address] Platelets 300 10*3/uL Normal 140-450 [facility] Comment on above: Performed By: #### C DP, PROL, BHCG, FT4, INSU, LH, PROG, TSH, GLU ####[address] [address] WBC (Leukocytes) 5.2 10*3/uL Normal 3.5-11.0 [facility] Comment on above: Performed By: #### C DP, PROL, BHCG, FT4, INSU, LH, PROG, TSH, GLU ####[address] [address] Auto Diff Performed NOT REPORTED Normal [facility] Comment on above: Performed By: #### C DP, PROL, BHCG, FT4, INSU, LH, PROG, TSH, GLU ####[address] [address] Platelets NOT REPORTED Normal [facility] Comment on above: Performed By: #### C DP, PROL, BHCG, FT4, INSU, LH, PROG, TSH, GLU ####[address] [address] WBC Morphology NOT REPORTED Normal [facility] Comment on above: Performed By: #### C DP, PROL, BHCG, FT4, INSU, LH, PROG, TSH, GLU ####[address] [address] Glucoseon 06-03-2017 Glucose mass conc 96 mg/dL Normal 70-99 [facility] Comment on above: Result Comment: [address] [address] Performed By: #### C DP, PROL, BHCG, FT4, INSU, LH, PROG, TSH, GLU ####[address] [address] HCG, Quanton 06-03-2017 HCG, Quant 65 IU/L High <5 [facility] Comment on above: Result Comment: Non- preg premeno <=5Postmeno <=8Male <=3If HCG results do not concur with clinical observations, additional testing to confirm result is recommended. This test is not labeled for use as a tumor marker.[address] [address] Performed By: #### C DP, PROL, BHCG, FT4, INSU, LH, PROG, TSH, GLU ####[address] [address] Insulinon 06-03-2017 Insulin 10.0 mU/L Normal [facility] Comment on above: Performed By: #### C DP, PROL, BHCG, FT4, INSU, LH, PROG, TSH, GLU ####[address] [address] Reference Range Normal [facility] Comment on above: Result Comment: Fast in.6-24.930 min: 20-32157 min: 29-8890 min: 26-75301 min: 22-[address] [address] Performed By: #### C DP, PROL, BHCG, FT4, INSU, LH, PROG, TSH, GLU ####[address] [address] Collection Info. FASTING Normal [facility] Comment on above: Performed By: #### C DP, PROL, BHCG, FT4, INSU, LH, PROG, TSH, GLU ####[address] [address] Luteinizing Hormoneon 2016 Luteinizing Hormone 0.6 U/L Low 1.0-95.6 [facility] Comment on above: Result Comment: Refe rence Range:Male: 1.7-8.6Ovulating Female: Follicular Phase 2.4-12.6 Ovulation Phase 14.0-95.6 Luteal Phase 1.0-11.4Postmenopausal Female: 7.7-58.[address] [address] Performed By: #### C DP, PROL, BHCG, FT4, INSU, LH, PROG, TSH, GLU ####[address] [address] Progesteroneon 06-03-2017 Progesterone 17.44 ng/mL Normal [facility] Comment on above: Result Comment: FEMA LE (healthy): Follicular phase 0.06-0.89 Ovulation phase 0.12-12.00 Luteal phase 1.83-23.90Postmenopausal <0.[address] [address] Performed By: #### C DP, PROL, BHCG, FT4, INSU, LH, PROG, TSH, GLU ####[address] [address] Prolactinon 06-03-2017 Prolactin 13.77 ug/L Normal 4.79-23.30 [facility] Comment on above: Result Comment: The presence of macroprolactin may cause interference in female patients with various endocrinological diseases or during .[facility] [address] [place] [id number] Performed By: #### C DP, PROL, BHCG, FT4, INSU, LH, PROG, TSH, GLU ####[address] [address] Thyroid Stim. Horm.on 2016 Thyroid stimulating hormone (TSH) 1.67 m[IU]/L Normal 0.30-5.00 [facility] Comment on above: Result Comment: [facility] [address] [place] [address] [phone] ([phone] Performed By: #### C DP, PROL, BHCG, FT4, INSU, LH, PROG, TSH, GLU ####[address] [place], [place] [id number] Thyroxine, Freeon 06-03-2017 Thyroxine, Free 1.21 ng/dL Normal 0.93-1.70 [facility] Comment on above: Result Comment: [facility] [address] [place], [place] [id number] ([phone] Performed By: #### C DP, PROL, BHCG, FT4, INSU, LH, PROG, TSH, GLU ####[address] [place], [place] [id number] Vital Signs Date Time Vital Sign Value Performing Clinician Facility 01-10-2025 11:35-0400 Body weight 79.89 kg Clarita SANCHEZ Work Phone: [facility] 01-10-2025 11:35-0400 Diastolic blood pressure 70 mm[Hg] Clarita SANCHEZ Work Phone: [facility] 01-10-2025 11:35-0400 Systolic blood pressure 112 mm[Hg] Clarita SANCHEZ Work Phone: [facility] 05-23-2024 12:04-0400 Body weight 75.3 kg Maria D Leanna DO Work Phone: [facility] 05-23-2024 12:04-0400 Diastolic blood pressure 72 mm[Hg] Maria D Leanna DO Work Phone: [facility] 05-23-2024 12:04-0400 Systolic blood pressure 118 mm[Hg] Maria D Leanna DO Work Phone: [facility] 03-15-2024 18:37-0400 Body height 170.18 cm [facility] 03-15-2024 18:37-0400 Body mass index (BMI) [Ratio] 25.7 kg/m2 [facility] 03-15-2024 18:37-0400 Body temperature 98.3 [degF] [facility] 03-15-2024 18:37-0400 Body weight 74.61 kg [facility] 03-15-2024 18:37-0400 Heart rate 78 /min [facility] 03-15-2024 18:37-0400 Respiratory rate 18 /min [facility] 03-15-2024 18:37-0400 SaO2% (BldA) [Mass fraction] 98 % [facility] 08-05-2021 10:00-0500 Body height 167.64 cm Shannan Chilango Other [facility] Other 08-05-2021 10:00-0500 Body temperature 96 [degF] Shannan Chilango Other [facility] Other 08-05-2021 10:00-0500 Respiratory rate 18 /min Shannan Kee Other [facility] Other 08-05-2021 10:00-0500 SaO2% (BldA) [Mass fraction] 99 % Shannan Kee Other [facility] Other 07-20-2021 21:28-0500 Body height 167.64 cm PHYSICIAN NO [facility] 07-20-2021 21:28-0500 Body mass index (BMI) [Ratio] 23.3 kg/m2 PHYSICIAN NO [facility] 07-20-2021 21:28-0500 Body temperature 98.1 [degF] PHYSICIAN NO [facility] 07-20-2021 21:28-0500 Body weight 65.77 kg PHYSICIAN NO [facility] 07-20-2021 21:28-0500 Diastolic blood pressure 65 mm[Hg] PHYSICIAN NO [facility] 07-20-2021 21:28-0500 Heart rate 84 /min PHYSICIAN NO [facility] 07-20-2021 21:28-0500 Respiratory rate 18 /min PHYSICIAN NO [facility] 07-20-2021 21:28-0500 SaO2% (BldA) [Mass fraction] 100 % PHYSICIAN NO [facility] 07-20-2021 21:28-0500 Systolic blood pressure 145 mm[Hg] PHYSICIAN NO [facility] 06-20-2021 15:00-0400 Body height 167.64 cm Bridger Stephens Other [facility] Other 06-20-2021 15:00-0400 Body mass index (BMI) [Ratio] 23.08 kg/m2 Bridger Mijareschiquita Other [facility] Other 06-20-2021 15:00-0400 Body weight 64.86 kg Bridger Stephens Other [facility] Other Encounters Encounter Date Encounter Type Care Provider Facility Start: 01-10-2025 End: 01-10-2025 Bamboo flowsheet Clarita SANCHEZ Work Phone: [facility] Start: 01-10-2025 End: 01-10-2025 Bamboo flowsheet Clarita SANCHEZ Work Phone: [facility] Start: 01-10-2025 End: 01-10-2025 Patient encounter procedure Clarita SANCHEZ Work Phone: [facility] Work Phone: Start: 01-10-2025 End: 01-10-2025 Periodic preventive med est patient 40-64yrs Clarita SANCHEZ Work Phone: [facility] Comment on above: Well woman exam with routine gynecological exam; Breast cancer screening by mammogram Start: 05-23-2024 End: 05-23-2024 Patient encounter procedure Maria D Leanna DO Work Phone: [facility] Comment on above: Nexplanon removal; Insertion of Nexplanon; Encounter for initial prescription of implantable subdermal contraceptive Start: 05-23-2024 End: 05-23-2024 ambulatory MARIA D LEANNA Not Available Start: 04-26-2024 End: 04-26-2024 ambulatory Hailee L Markell Facility:[facility] Start: 03-28-2024 ambulatory Hailee Markell Facility:[facility] Start: 03-16-2024 End: 03-16-2024 ambulatory PHYSICIAN NO [facility] Work Phone: Start: 03-16-2024 End: 03-16-2024 Departed 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 Jessica Echols Work Phone: [facility] [place] Work Phone: Start: 03-15-2024 End: 03-15-2024 ambulatory [facility] Work Phone: Start: 03-15-2024 End: 03-15-2024 Patient encounter procedure [facility] Work Phone: Start: 01-07-2024 End: 01-07-2024 ambulatory CLARITA MARTEL Not Available Start: 10-17-2021 End: 10-18-[address] DOCTOR LINTON Facility:[facility] Start: 10-05-2021 End: 10-06-[address] DOCTOR LINTON Facility:[facility] Start: 08-05-2021 End: 08-05-2021 ambulatory Shannan Kee Other [facility] Other Start: 08-05-2021 Office outpatient vi sit 15 minutes Shannan Kee [facility] Start: 07-20-2021 End: 07-20-2021 Emergency department patient visit PHYSICIAN NO [facility] Start: 06-20-2021 End: 06-21-2021 ambulatory BRIDGER STEPHENS Facility:[facility] Start: 06-20-2021 Office outpatient ne w 30 minutes Bridger Stephens [facility] Start: 05-14-2021 End: 05-15-[address] DOCTOR LINTON Facility:[facility] Start: 11-13-2020 End: 11-13-[address] MARIA D LEANNA Facility:[facility] Start: 06-15-2017 End: 06-16-2017 Ambulatory NISHI GUERRERO [facility] Start: 06-04-2017 End: 06-05-2017 Ambulatory AKIKO Corey [facility] Start: 06-03-2017 End: 06-04-2017 Ambulatory AKIKO Corey [facility] Procedures Date Procedure Procedure Detail Performing Clinician Start: 05-23-2024 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 INSERTION/REMOVA L OF CONTRACEPTIVE CAPSULE Maria D Leanna DO Work Phone: Start: 05-23-2024 Urine test visual color cmprsn meths Maria D Leanna DO Work Phone: Start: 05-16-2024 Mammography Maria D Fazi o DO Work Phone: Start: 01-07-2024 Microscopic observat ion [Identifier] in Cervix by Cyto stain Maria D Gibsono DO Work Phone: Start: 06-15-2017 HCG, QUANTITATIVE, AKIKO POP Start: 06-04-2017 HCG, QUANTITATIVE, AKIKO POP Start: 06-03-2017 CBC WITH AUTO DIFFERENTIAL AKIKO POP Start: 06-03-2017 GLUCOSE, RANDOM AKIKO POP Start: 06-03-2017 HCG, QUANTITATIVE, AKIKO POP Start: 06-03-2017 INSULIN, TOTAL AKIKO R USSETISHA Start: 06-03-2017 LUTEINIZING HORMONE LAK KAITLYNN POP Start: 06-03-2017 PROGESTERONE AKIKO CAMPBELL SELL Start: 06-03-2017 PROLACTIN AKIKO CAMPBELL SELL Start: 06-03-2017 T4, FREE AKIKO ADRIAN SELL Start: 06-03-2017 TSH WITHOUT REFLEX TOBI POP Plan of Treatment Date Care Activity Detail Author Start: 01-06-2027 Screening for malignant neoplasm of cervix [facility] Start: 01-17-2026 End: 01-17-2026 Patient encounter procedure 01/17/2026 9:00 AM EDT Office Visit [facility] [address] [place] [id number] Clarita Martel PA [address] [place] [address] [facility] Start: 05-16-2025 Screening for malignant neoplasm of breast Mammogram [facility] Start: 04-24-2025 Influenza vaccination Influenz a Vaccine (Season Ended) [facility] Start: 01-10-2025 End: 03-12-2026 MG Breast - bilateral Screening Bilateral screening mammogram Imaging Routine Breast cancer screening by mammogram Expected: 01/10/2025 (Approximate), Expires: 03/12/2026 [facility] Work Phone: Comment on above: Expected: 01/10/2025 (Approximate), Expires: 03/12/2026 Start: 01-10-2025 End: 01-10-2025 Patient encounter procedure [facility] Comment on above: Arrived Start: 04-24-2024 Influenza vaccination Influenza Vacc ine (#1) [facility] Start: 03-16-2024 Herpes simplex virus identified in Unspecified specimen by Organism specific culture [facility] Start: 03-16-2024 [facility] Start: 11-15-2013 Screening for malignant neoplasm of cervix HPV/Cotest [facility] Atopobium vaginae DN A [Presence] in Vaginal fluid by TENA with probe detection [facility] Bacterial vaginosis associated bacterium 2 DNA [Presence] in Vaginal fluid by TENA with probe detection [facility] Megasphaera sp type 1 DNA [Presence] in Vaginal fluid by TENA with probe detection [facility] Patient Education [facility] For Your Stitches (ED) Laceration (ED) [facility] Patient referral [facility] Removal non-biodegradable drug delivery implant Remove drug implant device Procedures Routine Nexplanon removal Ordered: 05/23/2024 [facility] Work Phone: Comment on above: Ordered: 05/23/2024 THIN PREP TIS PAP AN D HR HPV DNA THIN PREP TIS PAP AND HR HPV DNA Pathology and Cytology Routine Well woman exam with routine gynecological exam Ordered: 01/10/2025 [facility] Comment on above: Ordered: 01/10/2025 Payers Date Payer Category Payer Self-pay [id number] 2023 Unknown [employer] [id number] 2023-Present [address] [place] [address] [id number] 2022 [employer] ( and others) [facility] [id number] 2022-Present [address] [place] [address] [id number] 2022 () [id number] 2022 Department of [facility] e ( and others) [id number] 2014 Unknown [id number] 1983 Unknown [id number] [id number] 1983 Unknown [id number]. 2.593 1983 Unknown [id number] [id number]. 2.593 1983 Unknown [id number] [id number]. 2.593 1983 Unknown [id number] [id number]. 2.593 1983 Unknown [id number] [id number]. 2.727 1983 Unknown [id number] [id number] 1983 Unknown [id number] [id number] 1959 Unknown [id number] Unknown [id number] Unknown [id number] [id number] Social History Date Type Detail Facility Start: 07-20-2021 End: 03-15-2024 Tobacco smoking status [facility] Never smoked tobacco (finding) [facility] Start: 1985 Sex Assigned At Female F [facility] Sex Assigned At [facility] Other Tobacco smoking status [facility] Tobacco smoking consumption unknown [facility] Start: 1985 Sex assigned at Not on file N [facility] Clinical Notes 06-20-2021 to 01-10-2025 DANIEL Beauchamp - 01/10/2025 11:00 AM EDTSnikole Armando LPN - 05/23/2024 11:30 AM EDT Note Date & Type Note Facility 01-10-2025 History of Presen t illness Narrative Reason for Appointment: Patient ID: An Pleitez is a 39 y.o. female who presents for Well Women Visit Patient presents today for Return OB appointment. MEDICATIONS Current Outpatient Medications Medication Instructions naproxen (Naprosyn) 500 MG tablet TAKE 1 TABLET BY MOUTH EVERY 12 HOURS WITH FOOD OR MILK NEEDED Sodium Fluoride 5000 PPM 1.1 % paste USE PEA SIZED AMOUT. BRUSH FOR 2 MINUTES AT BEDTIME. DO NOT EAT/DRINK/RINSE X 30 MINUTES ALLERGIES No Known Allergies PROBLEMS Active Ambulatory Problems Diagnosis Date Noted No Active Ambulatory Problems Resolved Ambulatory Problems Diagnosis Date Noted No Resolved Ambulatory Problems No Additional Past Medical History HISTORY PAST MEDICAL HISTORY SOCIAL HISTORY History reviewed. No pertinent past medical history. Social History Tobacco Use Smoking status: Not on file Smokeless tobacco: Not on file Substance Use Topics Alcohol use: Not on file Drug use: Not on file FAMILY HISTORY No family history on file. SURGICAL HISTORY History reviewed. No pertinent surgical history. REVIEW OF SYSTEMS Review of Systems: Review of Systems Constitutional: Negative. HENT: Negative. Eyes: Negative. Respiratory: Negative. Cardiovascular: Negative. Gastrointestinal: Negative. Genitourinary: Negative. Musculoskeletal: Negative. Skin: Negative. Neurological: Negative. All other systems reviewed and are negative. Hematological: Negative. Endocrine: Negative. Allergic/Immunologic: Negative. OBJECTIVE Objective: Physical Exam Constitutional: Appearance: Normal appearance. She is normal weight. HENT: Head: Normocephalic. Cardiovascular: Rate and Rhythm: Normal rate. Pulses: Normal pulses. Pulmonary: Effort: Pulmonary effort is normal. Breath sounds: Normal breath sounds. Abdominal: Palpations: Abdomen is soft. Musculoskeletal: General: Normal range of motion. Neurological: General: No focal deficit present. Mental Status: She is alert and oriented to person, place, and time. Psychiatric: Mood and Affect: Mood normal. Behavior: Behavior normal. Thought Content: Thought content normal. Judgment: Judgment normal. Vitals and nursing note reviewed. Vitals: There is no height or weight on file to calculate BMI. BP: 112/70 No LMP recorded. Patient has had an implant. ASSESSMENT & PLAN ICD-10-CM 1. Well woman exam with routine gynecological exam Z01.419 THIN PREP TIS PAP AND HR HPV DNA 2. Breast cancer screening by mammogram Z12.31 Bilateral screening mammogram Bilateral screening mammogram Annual Exam: Patient presents today for an annual exam. Patient states she is doing well and has no complaints. Pap was obtained without difficulty. Orders Placed This Encounter Procedures Bilateral screening mammogram Follow Up: Patient is to return in one year for annual unless needed otherwise. Documented by DANIEL Beauchamp on behalf of: DANIEL Beauchamp documented in this encounter [facility] 05-23-2024 History of Presen t illness Narrative Associated Order(s): Insertion/Removal of Contraceptive Capsule Post-Procedure Diagnose(s): Nexplanon removal; Insertion of Nexplanon Reason for Appointment: Patient ID: An Pleitez is a 38 y.o. female who presents for Contraception Patient presents today for a Nexplanon Removal and Nexplanon Insertion appointment. MEDICATIONS Current Outpatient Medications Medication Instructions doxycycline (Vibramycin) 100 MG capsule Twice daily ibuprofen (Ibuprofen 100 José Strength) 100 MG chewable tablet Every 12 hours naproxen (Naprosyn) 500 MG tablet TAKE 1 TABLET BY MOUTH EVERY 12 HOURS WITH FOOD OR MILK NEEDED Sodium Fluoride 5000 PPM 1.1 % paste USE PEA SIZED AMOUT. BRUSH FOR 2 MINUTES AT BEDTIME. DO NOT EAT/DRINK/RINSE X 30 MINUTES valACYclovir (Valtrex) 1 g tablet Twice daily ALLERGIES No Known Allergies SURGICAL HISTORY No past surgical history on file. REVIEW OF SYSTEMS Review of Systems: Review of Systems All other systems reviewed and are negative. OBJECTIVE Objective: Physical Exam Constitutional: Appearance: Normal appearance. She is well-developed. Cardiovascular: Rate and Rhythm: Normal rate and regular rhythm. Pulmonary: Effort: Pulmonary effort is normal. Breath sounds: Normal breath sounds. Abdominal: General: Bowel sounds are normal. There is no distension. Palpations: Abdomen is soft. Tenderness: There is no abdominal tenderness. There is no guarding or rebound. Musculoskeletal: General: No swelling. Normal range of motion. Right lower leg: No edema. Left lower leg: No edema. Neurological: Mental Status: She is alert and oriented to person, place, and time. Skin: General: Skin is warm and dry. Psychiatric: Mood and Affect: Mood normal. Behavior: Behavior normal. Vitals and nursing note reviewed. Exam conducted with a psychiatric clinician present. Vitals: There is no height or weight on file to calculate BMI. BP: 118/72 No LMP recorded (lmp unknown). Patient has had an implant. ASSESSMENT & PLAN Assessment/Plan Encounter Diagnosis: ICD-10-CM 1. Nexplanon removal Z30.46 Remove drug implant device 2. Insertion of Nexplanon Z30.017 etonogestrel-eluting 68 mg contraceptive implant 1 each 3. Encounter for initial prescription of implantable subdermal contraceptive Z30.017 POCT , urine manually resulted CANCELED: Remove and insert drug implant Insertion/Removal of Contraceptive Capsule Date/Time: 05/23/2024 1:00 PM Performed by: Maria D Ram DO Authorized by: Maria D Ram DO Consent: Consent obtained: Written Consent given by: Patient Patient questions answered: yes Patient agrees, verbalizes understanding, and wants to proceed: yes Educational handouts given: yes Instructions and paperwork completed: yes Indication: Indication: Presence of non-biodegradable drug delivery implant Pre-procedure: Pre-procedure timeout performed: yes Prepped with: alcohol 70% Local anesthetic: Lidocaine without epinephrine The site was cleaned and prepped in a sterile fashion: yes Procedure: Procedure: Removal with reinsertion Small stab incision was made in arm: yes Left/right: Left Preloaded contraceptive capsule trocar was placed subdermally: yes Visualization of implant was obtained: yes Contraceptive capsule was inserted and trocar removed: yes Visualization of notch in stylet and palpation of device: yes Palpation confirms placement by provider and patient: yes Site was closed with steri-strips and pressure bandage applied: yes Nexplanon Removal/Insertion: Patient presents today for removal/reinsertion of Nexplanon. Written consent for procedure was obtained and patient was placed in supine position with left arm flexed at elbow. Skin was cleansed with alcohol/Betadine and 3cc of Lidocaine was injected underneath palpated Nexplanon at distal end. After allowing for sufficient time for numbing agent to take effect, the skin overlying the end of Nexplanon was incised with an 11inch blade scalpel. A 7.5in hemostat was inserted in the incision site to grab device and Nexplanon was released from tissue. Nexplanon implant was removed in its entirety and visualized by myself and patient. The Nexplanon device was removed from its sterile packaging and found to be in good working order. Nexplanon implant was visualized in the sheath. The skin was held taut while the Nexplanon needle device was gently inserted underneath. After Nexplanon was deployed, the insertion device was discarded in the sharps container. The Nexplanon was palpated by both provider and patient. The insertion site was covered with sterile gauze. Good hemostasis was noted. Post-procedure instructions were given. Patient was advised to call office with any questions or concerns. Follow Up: Patient is to return to the office as needed for any routine appointments or concerns regarding procedure. Documented by Sophy Armando LPN on behalf of: Maria D Ram DO documented in this encounter [facility] 08-05-2021 Evaluation note Encounter Date Diagnosis Assessment [...] care instructions given in writting by [facility] document. [employer] Other 10-28-2021 NotePROCEDURE: XR KNEE RT 1_2 V HISTORY: Pain of knee region ; lateral knee pain COMPARISON: None. FINDINGS: BONES:No fracture, acute abnormality, or significant arthropathy. SOFT TISSUES:No visible soft tissue swelling. EFFUSION:None visible. OTHER: Negative. IMPRESSION: 1. No acute or suspicious findings to account for patient's symptoms. 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 We discussed the conservative treatment options which can be beneficial in relieving pain including gentle non-impact motion and quadriceps strengthening exercise as well as occasional use of non-steroidal anti-inflammatory medication. 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 Advised patient limit her activity while knee is flared, and may then slowly progress back into her regular sporting activity. If continues to have issues/pain recurrance, may consider MRI for evaluation for meniscal tear. [employer] Other Evaluation noteNo assessment information available [facility] Diagnosis Onset Date Resolution Status Encounter for assessment of STD exposure acute [facility] Work Phone: Evaluation note* Diagnosis Nexplanon removal Insertion of Nexplanon Encounter for initial prescription of implantable subdermal contraceptive [facility] Diagnosis Well woman exam with routine gynecological exam Routine gynecological examination Breast cancer screening by mammogram documented [facility] this [facility] N[facility]ative - Reported* Type Description Date Surgical History C section Hospitalization History see above [employer] [facility] Other Hospital Discharge instructions Additional Instructions KEEP AREA [...] with Aquaphor Vaseline [facility] Purpose Family History Relationship Condition Age at Onset Recorded Date/T johanna father Unknown Advance Directives Advance Directive Response Recorded Date/ Time Advance [...] section and content) DATE CREATED AUTHOR 02/16/2018 [facility] DATE CREATED AUTHOR AUTHOR'S ORGANIZ ATION 02/16/2018 [facility] DATE CREATED AUTHOR AUTHOR'S ORGANIZ ATION 10/19/2021 [facility] DATE CREATED AUTHOR AUTHOR'S ORGANIZ ATION 03/25/2024 [facility] DATE CREATED AUTHOR AUTHOR'S ORGANIZ ATION 04/28/2024 [facility] DATE CREATED AUTHOR AUTHOR'S ORGANIZ ATION 05/24/2024 [facility] EPIC Goals (unrecognized section and content) Goals may be documented in a n alternate sectionNo InformationNo InformationGoals may be documented in an alternate sectionGoals may be documented in an alternate section REASON FOR VISIT (unrecogniz ed section and content) Reason Comments Contraception Reason Comments Well Women Visit Care Teams (unrecognized sec tion and [...] March 16, 2024 End: March 16, 2024 [employer] Relationship Specialty Start Date End Date Clarita Martel PA [address] [place] [address] [place] [address] PCP - [facility] 02/21/23 08/23/99 FOR RECORDS PERTAINING TO PATIENTS WHO ARE [...] BE BASED ON THE PRIMARY CLINICAL RECORDS. [facility]. provides no warranty or guarantee of the accuracy or completeness of information in this document.
[2025-01-13 11:09] LABS: Age Gdln ACOG Testing Note (.); HPV Aptima Negative (Negative); IGP, Aptima HPV, rfx 16/18,45 Note (.)
== END 2025-01-10 19:06 | disposition home or self-care (01) ==
LOC: LAB 19:05
PROVIDERS: Visit Provider Physician Assistant
DX: Z01.419 Encounter for gynecological examination (general) (routine) without abnormal findings (principal)
CPT/HCPCS: 87624; 88175